=== PATIENT | female | born 1985 | race Caucasian/White ===

== ENCOUNTER → 2016-03-18 | Outpatient (CLI) | payer OTHER ==
[2016-03-18 12:12] LABS: CALCIUM LEVEL 8.2 MG/DL (8.5-10.1)
== END ==
LOC: M LAB 11:34
PROVIDERS: ATTEND Physician Assistant Medical
DX: E21.3 Hyperparathyroidism, unspecified (principal)

== ENCOUNTER → 2016-03-18 | Outpatient (CLI) | payer OTHER ==
--- NOTE | 2016-03-18 12:25 | REP ---
THORACIC SPINE, THREE VIEWS: HISTORY: Back pain. There is no acute fracture or subluxation. The intervertebral discs are normal in height. 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 There is minimal scoliosis of the upper thoracic spine convex to the left. IMPRESSION: There is no acute fracture or subluxation. Signed by Lloyd Ashley MD 03/18/2016 12:28 P
== END ==
LOC: M RAD 11:36
PROVIDERS: ATTEND Family Medicine Addiction Medicine
DX: M54.6 Pain in thoracic spine (principal)

== ENCOUNTER → 2016-03-31 | Outpatient (REF) | payer OTHER | LOC: M LAB REF 17:15 | PROVIDERS: ATTEND Internal Medicine Endocrinology, Diabetes & Metabolism | DX: E20.8 Other hypoparathyroidism (principal) ==

== ENCOUNTER → 2016-05-11 | Outpatient (CLI) | payer OTHER ==
--- NOTE | 2016-05-11 15:23 | REP ---
MRI THORACIC SPINE WITHOUT CONTRAST: 05/11/2016. Clinical history: Back pain, chest pain. Technique: Marker at the T3 vertebral level as proven on summer law associate cervical-thoracic sagittal view with sagittal T1, T2 and STIR images and axial T1 and T2 sequences provided. Findings: The normal gentle thoracic kyphosis is seen. There is no evidence of an acute compression fracture with minimal superior endplate depression of T4 anteriorly without marrow edema or other acute finding. No evidence of fracture or destructive lesion from C7-L1. The disc space and disc water signal are maintained from C7-T1 through T12-L1. The conus terminates at T12-L1. The thoracic cord shows no intrinsic signal abnormality, syrinx, atrophy or mass. There is no disc bulge or herniation and no spinal or foraminal stenosis from the C7-T1 through T12-L1 levels. Impression: 1. Normal MRI thoracic spine. No intrinsic signal abnormality, syrinx, atrophy or mass and no spinal or foraminal stenosis. The disc space heights, disc water signal and vertebral body heights and marrow signal are normal throughout. No intrinsic signal abnormality in the cord and some minor old superior endplate depression of the T4 vertebral body anteriorly without edema in the marrow to suggest acuity. Signed by Julio Perez MD 05/11/2016 06:44 P
== END ==
LOC: M RAD 13:12
PROVIDERS: ATTEND Family Medicine Addiction Medicine
DX: R07.9 Chest pain, unspecified (principal); M54.9 Dorsalgia, unspecified

== ENCOUNTER → 2016-06-20 | Outpatient (CLI) | payer OTHER ==
[2016-06-20 13:39] LABS: CALCIUM LEVEL 8.7 MG/DL (8.5-10.1)
== END ==
LOC: M LAB 12:15
PROVIDERS: ATTEND Physician Assistant Medical
DX: E20.8 Other hypoparathyroidism (principal); E55.9 Vitamin D deficiency, unspecified

== ENCOUNTER 2016-08-11 10:39 | Emergency (ER) | payer OTHER ==
[~2016-08-11] VITALS: Ht 160 cm; Wt 59.5 kg
[2016-08-11 10:40] VITALS: BP 109/77
[2016-08-11] MEDS ORDERED: MECL-86 PO (11:00)
[2016-08-11] MEDS ORDERED: VITA1TAB27 PO (11:00)
[2016-08-11] MEDS ORDERED: GABA-279 PO (11:00)
[2016-08-11] MEDS ORDERED: PERC5TAB6 PO (11:00)
[2016-08-11] MEDS ORDERED: CALCIUM PO (11:00)
[2016-08-11] MEDS ORDERED: REGL10TA6 PO (11:00)
[2016-08-11] MEDS ORDERED: birth control pills PO (11:08)
[2016-08-11] MEDS ORDERED: NS 1,000 ML IV ONE (12:00)
[2016-08-11] MEDS ORDERED: ONDANSETRON 4MG/2ML VIAL (J2405) IV ONE (12:00)
[2016-08-11 12:40] LABS: BASO % 0.6 % (0.0-1.0); EOS # 0.2 K/mm3 (0.0-0.50); EOS % 2.4 % (0.0-3.0); LARGE UNSTAINED CELL # 0.1 K/mm3 (0.0-0.4); LARGE UNSTAINED CELL % 1.2 % (0.0-4.0); LYMPH # 1.7 K/mm3 (1.5-4.5); LYMPH % 21.4 % (24.0-44.0); MEAN CORPUSCULAR HEMOGLOBIN 31.2 pg (27.0-33.0); MEAN CORPUSCULAR HGB CONC 34.1 g/dl (32.0-36.5); MEAN CORPUSCULAR VOLUME 91.4 fl (80.0-96.0); MONO # 0.4 K/mm3 (0.0-0.8); MONO % 5.5 % (0.0-5.0); NEUTROPHILS # 5.3 K/mm3 (1.8-7.7); NEUTROPHILS % 68.9 % (36.0-66.0); PLATELET COUNT, AUTOMATED 254 k/mm3 (150-450); RED CELL DISTRIBUTION WIDTH 12.4 % (11.5-14.5); WHITE BLOOD COUNT 7.6 K/mm3 (4.0-10.0)
[2016-08-11 12:45] LABS: ALBUMIN 4.3 GM/DL (3.2-5.2); ALBUMIN/GLOBULIN RATIO 1.48 (1.00-1.93); ALKALINE PHOSPHATASE 49 U/L (45-117); ALT/SGPT 20 U/L (12-78); AMYLASE 62 U/L (25-115); ANION GAP 6 MEQ/L (8-16); AST/SGOT 11 U/L (15-37); BILIRUBIN,DIRECT < 0.1 MG/DL (0.0-0.2); BILIRUBIN,TOTAL 0.4 MG/DL (0.2-1.0); BLOOD UREA NITROGEN 13 MG/DL (7-18); CALCIUM LEVEL 8.1 MG/DL (8.5-10.1); CARBON DIOXIDE LEVEL 27 MEQ/L (21-32); CHLORIDE LEVEL 106 MEQ/L (98-107); CREATININE FOR GFR 0.82 MG/DL (0.55-1.02); GLOMERULAR FILTRATION RATE > 60.0 (>60); GLUCOSE, FASTING 65 MG/DL (70-105); POTASSIUM SERUM 3.2 MEQ/L (3.5-5.1); SODIUM LEVEL 139 MEQ/L (136-145); TOTAL PROTEIN 7.2 GM/DL (6.4-8.2)
[2016-08-11] MEDS ORDERED: ZOFR4TAB3 PO (14:14)
== END 2016-08-11 14:29 | disposition home or self-care (01) ==
LOC: M ED 11:15
DX: R11.2 Nausea with vomiting, unspecified (principal); R19.7 Diarrhea, unspecified; F41.9 Anxiety disorder, unspecified; K58.9 Irritable bowel syndrome, unspecified; Z87.891 Personal history of nicotine dependence; Z79.899 Other long term (current) drug therapy

== ENCOUNTER → 2016-11-04 | Outpatient (CLI) | payer OTHER ==
[~2016-11-04] MED LIST: CALCIUM PO; GABA-279 PO; GASTROGRAFIN SOLUTION 30ML (Q9963) As Ordered ONE; ISOVUE-370 76% 100ML VIAL (Q9967) As Ordered ONE; MECL-86 PO; PERC5TAB12 PO; REGL10TA6 PO; VITA1TAB27 PO; ZOFR4TAB3 PO; birth control pills PO
--- NOTE | 2016-11-04 15:11 | REP ---
Clinical: Change in bowel habits. Comparison: 12/21/2015. Findings: Lung bases are clear. Visualized heart and pericardium normal. Liver, spleen, pancreas, gallbladder, bilateral adrenal glands and kidneys are normal for noncontrast evaluation. The enteric system is without obstruction or acute inflammatory process. Normal terminal ileum and appendix are identified in the right lower quadrant. Pelvis demonstrates normal collapsed bladder and age-appropriate uterus/adnexa. No ascites. No free air. No adenopathy. Abdominal aorta appears normal. Musculoskeletal structures are intact. Impression: Normal noncontrast CT of the abdomen and pelvis. Signed by Matthieu Dc MD 11/04/2016 03:02 P
== END ==
LOC: M RAD 12:44
PROVIDERS: ATTEND Internal Medicine Gastroenterology
DX: R19.4 Change in bowel habit (principal)
CPT/HCPCS: 74176; Q9963

== ENCOUNTER 2016-11-15 11:45 | Outpatient (CLI) | payer OTHER ==
[~2016-11-15] VITALS: Ht 157.5 cm; Wt 58.9 kg
[~2016-11-15 11:45] MED LIST changes: -GASTROGRAFIN SOLUTION 30ML (Q9963) As Ordered ONE; -ISOVUE-370 76% 100ML VIAL (Q9967) As Ordered ONE
[2016-11-15] MEDS ORDERED: NS 1,000 ML IV SCH (12:00)
[2016-11-15] MEDS ORDERED: PROPOFOL 200 MG/20 ML VIAL As Ordered ONE ×2 (12:35→12:40)
[2016-11-15] MEDS ORDERED: LIDOCAINE 2% INJ 100 MG/5 ML SDV (FOR ANES.) As Ordered ONE (12:35)
--- NOTE | 2016-11-15 13:10 | ROOR ---
Patient Name: Jessica Drake Procedure Date: 11/15/2016 12:32 PM Date of : 1985 Age: 31 Room: [facility] Gender: Female Note Status: Finalized Procedure: Colonoscopy Indications: Hematochezia, Change in bowel habits, Constipation Providers: Mohinder Lowery MD Referring MD: Jovanny VANCE MD Requesting Provider: Medicines: Monitored Anesthesia Care Complications: No immediate complications. Procedure: Pre-Anesthesia Assessment: - Prior to the procedure, a History and Physical was performed, and patient medications and allergies were reviewed. The patient is competent. The risks and benefits of the procedure and the sedation options and risks were discussed with the patient. All questions were answered and informed consent was obtained. Patient identification and proposed procedure were verified by the physician, the nurse and the dental laboratory technician in the procedure room. Mental Status Examination: alert and oriented. Airway Examination: normal oropharyngeal airway and neck mobility. Respiratory Examination: clear to auscultation. CV Examination: normal. Prophylactic Antibiotics: The patient does not require prophylactic antibiotics. Prior Anticoagulants: The patient has taken no previous anticoagulant or antiplatelet agents. ASA Grade Assessment: II - A patient with mild systemic disease. After reviewing the risks and benefits, the patient was deemed in satisfactory condition to undergo the procedure. The anesthesia plan was to use monitored anesthesia care (MAC). Immediately prior to administration of medications, the patient was re-assessed for adequacy to receive sedatives. The heart rate, respiratory rate, oxygen saturations, blood pressure, adequacy of pulmonary ventilation, and response to care were monitored throughout the procedure. The physical status of the patient was re-assessed after the procedure. The Colonoscope was introduced through the anus and advanced to the cecum, identified by appendiceal orifice and ileocecal valve. The colonoscopy was somewhat difficult due to restricted mobility of the colon. Successful completion of the procedure was aided by using manual pressure. The patient tolerated the procedure well. The quality of the bowel preparation was good. The ileocecal valve, appendiceal orifice, and rectum were photographed. Scope insertion time was 3 minutes. Scope withdrawal time was 10 minutes. The total duration of the procedure was 16 minutes. Findings: The perianal and digital rectal examinations were normal. Diffuse moderate inflammation characterized by erosions, granularity and loss of vascularity was found from sigmoid to transverse colon. Biopsies were taken with a cold forceps for histology. Verification of patient identification for the specimen was done by the physician and nurse using the patient's name, date and medical record number. Estimated blood loss was minimal. Non-bleeding external and internal hemorrhoids were found during retroflexion. The hemorrhoids were medium-sized. The exam was otherwise without abnormality. Impression: - Diffuse moderate inflammation was found from sigmoid to transverse colon secondary to colitis. Biopsied. - Non-bleeding external and internal hemorrhoids. - The examination was otherwise normal. Recommendation: - Patient has a contact number available for emergencies. The signs and symptoms of potential delayed complications were discussed with the patient. Return to normal activities tomorrow. Written discharge instructions were provided to the patient. - High fiber diet. - Continue present medications. - Await pathology results. - Repeat colonoscopy at age 49 for screening purposes. - Return to GI clinic as previously scheduled on 12/02/2016 at 9:00 AM. - Return to primary care physician. Mohinder Lowery MD Mohinder Lowery MD 11/15/2016 1:10:15 PM This report has been signed electronically. Number of Addenda: 0 Note Initiated On: 11/15/2016 12:32 PM Estimated Blood Loss: Estimated blood loss was minimal.
[2016-11-15 13:56] VITALS: BP 124/78
[2016-11-15] MEDS ORDERED: IBUPROFEN 400 MG TAB As Ordered ONE (14:08)
[2016-11-15] MEDS ORDERED: IBUPROFEN 400 MG TAB PO ONE (14:30)
== END 2016-11-15 14:16 | disposition home or self-care (01) ==
LOC: M OPP 11:45
PROVIDERS: ATTEND Internal Medicine Gastroenterology
DX: K92.1 Melena (principal); R19.4 Change in bowel habit; K59.00 Constipation, unspecified; K63.89 Other specified diseases of intestine; K64.4 Residual hemorrhoidal skin tags; K64.8 Other hemorrhoids; G89.4 Chronic pain syndrome; E07.9 Disorder of thyroid, unspecified; E21.3 Hyperparathyroidism, unspecified; Z80.1 Family history of malignant neoplasm of trachea, bronchus and lung; Z80.0 Family history of malignant neoplasm of digestive organs; F17.210 Nicotine dependence, cigarettes, uncomplicated; Z79.899 Other long term (current) drug therapy

== ENCOUNTER → 2016-12-06 | Outpatient (REF) | payer OTHER ==
[2016-12-06 15:14] LABS: CALCIUM LEVEL 8.2 MG/DL (8.5-10.1); PHOSPHORUS LEVEL 3.2 MG/DL (2.5-4.9)
== END ==
LOC: M LABDRAW1 11:35
PROVIDERS: ATTEND Internal Medicine Endocrinology, Diabetes & Metabolism
DX: E21.3 Hyperparathyroidism, unspecified (principal)

== ENCOUNTER → 2017-01-30 | Outpatient (CLI) | payer OTHER ==
[2017-01-30 14:16] LABS: CALCIUM LEVEL 8.7 MG/DL (8.5-10.1); MAGNESIUM LEVEL 1.9 MG/DL (1.8-2.4); PHOSPHORUS LEVEL 4.3 MG/DL (2.5-4.9)
== END ==
LOC: M LAB 12:41
PROVIDERS: ATTEND Internal Medicine Endocrinology, Diabetes & Metabolism
DX: E21.3 Hyperparathyroidism, unspecified (principal)

== ENCOUNTER 2017-06-03 14:23 | Emergency (ER) | payer OTHER | END 2017-06-03 15:04 | disposition home or self-care (01) | LOC: M ED 14:23 | DX: K04.7 Periapical abscess without sinus (principal); K02.9 Dental caries, unspecified; F17.200 Nicotine dependence, unspecified, uncomplicated; Z79.899 Other long term (current) drug therapy | CPT/HCPCS: 99282 ==

== ENCOUNTER → 2017-08-04 | Outpatient (REF) | payer OTHER ==
[2017-08-04 16:52] LABS: CALCIUM LEVEL 8.3 MG/DL (8.5-10.1)
[2017-08-04 16:52] LABS: PHOSPHORUS LEVEL 3.1 MG/DL (2.5-4.9)
[2017-08-04 16:57] LABS: TOTAL 25(OH) VITAMIN D 16.4 NG/ML (30.0-100.0)
== END ==
LOC: M LABDRAW1 11:06
DX: E21.3 Hyperparathyroidism, unspecified (principal); E55.9 Vitamin D deficiency, unspecified

== ENCOUNTER 2017-08-23 15:27 | Emergency (ER) | payer OTHER ==
[2017-08-23 17:38] LABS: BASO # 0.1 10^3/uL (0.0-0.2); BASO % 0.9 % (0.0-1.0); EOS # 0.5 10^3/uL (0.0-0.50); EOS % 6.1 % (0.0-3.0); HEMOGLOBIN 12.9 g/dl (12.0-15.5); IMMATURE GRANULOCYTE % 0.3 % (0-3.0); LYMPH # 2.7 10^3/uL (1.5-4.5); LYMPH % 35.8 % (24.0-44.0); MEAN CORPUSCULAR HEMOGLOBIN 30.3 pg (27.0-33.0); MEAN CORPUSCULAR HGB CONC 33.9 g/dl (32.0-36.5); MEAN CORPUSCULAR VOLUME 89.2 fl (80.0-96.0); MONO # 0.7 10^3/uL (0.0-0.8); MONO % 8.8 % (0.0-5.0); NEUTROPHILS # 3.6 10^3/uL (1.8-7.7); NEUTROPHILS % 48.1 % (36.0-66.0); PLATELET COUNT, AUTOMATED 257 10^3/uL (150-450); RED BLOOD COUNT 4.26 10^6/uL (4.00-5.40); RED CELL DISTRIBUTION WIDTH 12.3 % (11.5-14.5); WHITE BLOOD COUNT 7.4 10^3/uL (4.0-10.0)
[2017-08-23] MEDS: GI COCKTAIL 50ML BTL(HYOSCYAMINE/MAALOX/LIDOCAINE VISCOUS)(1:3:1) PO (17:45)
[2017-08-23] MEDS: NS 1,000 ML IV (17:45)
[2017-08-23 17:48] LABS: ALBUMIN 3.7 GM/DL (3.2-5.2); ALBUMIN/GLOBULIN RATIO 1.28 (1.00-1.93); ALKALINE PHOSPHATASE 48 U/L (45-117); ALT/SGPT 30 U/L (12-78); ANION GAP 4 MEQ/L (8-16); AST/SGOT 20 U/L (7-37); BILIRUBIN,DIRECT < 0.1 MG/DL (0.0-0.2); BILIRUBIN,TOTAL 0.2 MG/DL (0.2-1.0); BLOOD UREA NITROGEN 13 MG/DL (7-18); CALCIUM LEVEL 7.7 MG/DL (8.5-10.1); CARBON DIOXIDE LEVEL 28 MEQ/L (21-32); CHLORIDE LEVEL 111 MEQ/L (98-107); CREATININE FOR GFR 0.74 MG/DL (0.55-1.30); GLOMERULAR FILTRATION RATE > 60.0 (>60); GLUCOSE, FASTING 67 MG/DL (70-100); LIPASE 1097 U/L (73-393); POTASSIUM SERUM 4.1 MEQ/L (3.5-5.1); SODIUM LEVEL 143 MEQ/L (136-145); TOTAL PROTEIN 6.6 GM/DL (6.4-8.2)
[2017-08-23 18:02] LABS: AMYLASE 121 U/L (25-115)
[2017-08-23] MEDS ORDERED: ISOVUE-370 76% 100ML VIAL (Q9967) As Ordered (18:46)
[2017-08-23] MEDS: ONDANSETRON 4MG/2ML VIAL (J2405) IV (18:51)
[2017-08-23] MEDS: MORPHINE 4 MG/ML 1ML VIAL/SYRINGE (J2270) IV (18:51)
== END 2017-08-23 20:43 | disposition home or self-care (01) ==
LOC: M ED 15:27
DX: R74.8 Abnormal levels of other serum enzymes (principal); R93.5 Abnormal findings on diagnostic imaging of other abdominal regions, including retroperitoneum; K58.9 Irritable bowel syndrome, unspecified; Z87.442 Personal history of urinary calculi; Z86.69 Personal history of other diseases of the nervous system and sense organs; Z98.890 Other specified postprocedural states; Z79.3 Long term (current) use of hormonal contraceptives; Z79.899 Other long term (current) drug therapy
CPT/HCPCS: J2270

== ENCOUNTER → 2017-09-25 | Outpatient (CLI) | payer OTHER ==
[2017-09-28 08:11] LABS: IGASUB2 66.7 mg/dL (73.2-301.2); IGASUB3 12.5 mg/dL (13.4-97.9); IgA SERUM (part of Subclasses) 96 mg/dL (87-352); IgG SUBCLASS 4(ONLY) 35 mg/dL (2-96)
[2017-09-28 08:11] LABS: TISSUE TRANSGLUTAMINASE IgA <2 U/mL (0-3)
== END ==
LOC: M LAB 15:05
DX: K85.90 Acute pancreatitis without necrosis or infection, unspecified (principal)
CPT/HCPCS: 82784

== ENCOUNTER 2017-09-26 10:42 | Day surgery (SDC) | payer OTHER ==
[~2017-09-26 10:42] MED LIST changes: -CALCIUM PO; -GABA-279 PO; -MECL-86 PO; -PERC5TAB12 PO; +PROPOFOL 200 MG/20 ML VIAL As Ordered; -REGL10TA6 PO; -VITA1TAB27 PO; -ZOFR4TAB3 PO; -birth control pills PO; +fentaNYL 100 MCG/2 ML INJECTION (J3010) As Ordered
[2017-09-26] MEDS ORDERED: LIDOCAINE 2% INJ 100 MG/5 ML SDV (FOR ANES.) As Ordered (10:54)
[2017-09-26] MEDS: NS 1,000 ML IV (11:00)
== END 2017-09-26 12:36 | disposition home or self-care (01) ==
LOC: M OPP 10:42
DX: R93.3 Abnormal findings on diagnostic imaging of other parts of digestive tract (principal); K52.9 Noninfective gastroenteritis and colitis, unspecified; K31.89 Other diseases of stomach and duodenum; K29.70 Gastritis, unspecified, without bleeding; E21.3 Hyperparathyroidism, unspecified; Z86.79 Personal history of other diseases of the circulatory system; K59.00 Constipation, unspecified; M54.89 Other dorsalgia; F41.9 Anxiety disorder, unspecified; F32.9 Major depressive disorder, single episode, unspecified; R42 Dizziness and giddiness; F43.10 Post-traumatic stress disorder, unspecified; Z87.442 Personal history of urinary calculi; Z79.899 Other long term (current) drug therapy; Z80.1 Family history of malignant neoplasm of trachea, bronchus and lung; Z80.0 Family history of malignant neoplasm of digestive organs
CPT/HCPCS: 43239

== ENCOUNTER → 2017-11-20 | Outpatient (REF) | payer OTHER ==
[2017-11-20 18:40] LABS: BASO % 0.7 % (0.0-1.0); EOS # 0.2 10^3/uL (0.0-0.50); EOS % 2.8 % (0.0-3.0); HEMATOCRIT 43.9 % (36.0-47.0); HEMOGLOBIN 14.7 g/dl (12.0-15.5); IMMATURE GRANULOCYTE % 0.2 % (0-3.0); LYMPH # 2.1 10^3/uL (1.5-4.5); LYMPH % 36.6 % (24.0-44.0); MEAN CORPUSCULAR HEMOGLOBIN 30.8 pg (27.0-33.0); MEAN CORPUSCULAR HGB CONC 33.5 g/dl (32.0-36.5); MONO # 0.4 10^3/uL (0.0-0.8); MONO % 6.2 % (0.0-5.0); NEUTROPHILS % 53.5 % (36.0-66.0); PLATELET COUNT, AUTOMATED 283 10^3/uL (150-450); RED BLOOD COUNT 4.77 10^6/uL (4.00-5.40); WHITE BLOOD COUNT 5.7 10^3/uL (4.0-10.0)
[2017-11-20 18:54] LABS: AMORPHOUS SEDIMENT MODERATE (NEGATIVE); APPEARANCE, URINE HAZY (CLEAR); BACTERIA, URINE AUTO NEGATIVE (NEGATIVE); BILIRUBIN, URINE AUTO NEGATIVE (NEGATIVE); BLOOD, URINE BLOOD NEGATIVE (NEGATIVE); COLOR, URINE YELLOW (YELLOW); GLUCOSE, URINE (UA) AUTO NEGATIVE (NEGATIVE); KETONE, URINE AUTO NEGATIVE (NEGATIVE); LEUKOCYTE ESTERASE, URINE AUTO NEGATIVE (NEGATIVE); NITRITE, URINE AUTO NEGATIVE (NEGATIVE); PROTEIN, URINE AUTO NEGATIVE (NEGATIVE); RBC, URINE AUTO 0 /HPF (0-3); SPECIFIC GRAVITY URINE AUTO 1.012 (1.002-1.035); SQUAMOUS EPITHELIAL CELL UR AU 0 /HPF (0-6); UROBILINOGEN, URINE AUTO 0.2 mg/dL (0.0-2.0); WBC, URINE AUTO 3 /HPF (0-3)
[2017-11-20 19:19] LABS: FREE THYROXINE INDEX 2.9 % (1.3-4.8); T UPTAKE 31 % (30-39); THYROXINE (T4) 9.4 UG/DL (4.5-12.0)
[2017-11-20 19:56] LABS: ESTIMATED AVERAGE GLUCOSE 91 MG/DL (60-110); HEMOGLOBIN A1c 4.8 %
[2017-11-20 20:08] LABS: TOTAL 25(OH) VITAMIN D 21.2 NG/ML (30.0-100.0)
== END ==
LOC: M LAB REF 16:57
DX: F33.0 Major depressive disorder, recurrent, mild (principal)

== ENCOUNTER → 2017-12-22 | Outpatient (REF) | payer OTHER ==
[2017-12-22 15:27] LABS: PHOSPHORUS LEVEL 3.6 MG/DL (2.5-4.9)
[2017-12-22 15:27] LABS: CALCIUM LEVEL 8.9 MG/DL (8.5-10.1)
[2017-12-22 15:34] LABS: TOTAL 25(OH) VITAMIN D 27.5 NG/ML (30.0-100.0)
== END ==
LOC: M LABDRAW1 12:54
DX: E21.3 Hyperparathyroidism, unspecified (principal); E55.9 Vitamin D deficiency, unspecified
CPT/HCPCS: 82310

== ENCOUNTER → 2018-01-01 | Outpatient (REF) | payer OTHER, MEDICAID ==
[2018-01-01 17:54] LABS: MAGNESIUM LEVEL 2.2 MG/DL (1.8-2.4)
== END ==
LOC: M LAB REF 16:43
DX: F33.0 Major depressive disorder, recurrent, mild (principal)

== ENCOUNTER → 2018-01-17 | Outpatient (REF) | payer OTHER ==
[2018-01-17 13:58] LABS: APPEARANCE, URINE HAZY (CLEAR); BACTERIA, URINE AUTO NEGATIVE (NEGATIVE); BILIRUBIN, URINE AUTO NEGATIVE (NEGATIVE); BLOOD, URINE BLOOD 1+ (NEGATIVE); CALCIUM OXALATE CRYSTALS MODERATE; COLOR, URINE AMBER (YELLOW); GLUCOSE, URINE (UA) AUTO NEGATIVE (NEGATIVE); KETONE, URINE AUTO NEGATIVE (NEGATIVE); LEUKOCYTE ESTERASE, URINE AUTO NEGATIVE (NEGATIVE); MUCUS, URINE LARGE (NEGATIVE); NITRITE, URINE AUTO NEGATIVE (NEGATIVE); PROTEIN, URINE AUTO NEGATIVE (NEGATIVE); RBC, URINE AUTO 4 /HPF (0-3); SQUAMOUS EPITHELIAL CELL UR AU 2 /HPF (0-6); WBC, URINE AUTO 3 /HPF (0-3)
== END ==
LOC: M SMT 12:52
DX: R39.15 Urgency of urination (principal)
CPT/HCPCS: 81001

== ENCOUNTER → 2018-02-01 | Outpatient (CLI) | payer OTHER | LOC: M RAD 11:51 | DX: R39.15 Urgency of urination (principal); R39.14 Feeling of incomplete bladder emptying; Z87.442 Personal history of urinary calculi | CPT/HCPCS: 76775 ==

== ENCOUNTER 2018-02-10 19:26 | Emergency (ER) | payer OTHER ==
[2018-02-10 21:06] LABS: INFLUENZA A AMPLIFICATION NEGATIVE (NEGATIVE); INFLUENZA B AMPLIFICATION NEGATIVE (NEGATIVE)
[2018-02-10] MEDS: ACETAMINOPHEN 325 MG TAB PO (21:23)
[2018-02-10] MEDS: IBUPROFEN 600 MG TAB PO (21:23)
== END 2018-02-10 21:36 | disposition home or self-care (01) ==
LOC: M ED 19:26
DX: R52 Pain, unspecified (principal); R53.81 Other malaise; B34.9 Viral infection, unspecified; G43.909 Migraine, unspecified, not intractable, without status migrainosus; K58.9 Irritable bowel syndrome, unspecified; Z79.899 Other long term (current) drug therapy
CPT/HCPCS: 87502

== ENCOUNTER → 2018-02-12 | Outpatient (REF) | payer OTHER ==
[~2018-02-12] MED LIST changes: +CALC1CAP31 PO; +CALCIUM PO; +COLA100C5 PO; +GABA-1171 PO; +IBUP-1114 PO; +MECL-86 PO; +NORCOTAB PO; +OXYC1TAB23 PO; +PENI500T PO; +PERC5TAB12 PO; -PROPOFOL 200 MG/20 ML VIAL As Ordered; +REGL10TA6 PO; +SENN8.6T17 PO; +VITA1TAB27 PO; +ZOFR4TAB14 PO; +birth control pills PO; -fentaNYL 100 MCG/2 ML INJECTION (J3010) As Ordered
[2018-02-12 17:58] LABS: AMORPHOUS SEDIMENT LARGE (NEGATIVE); APPEARANCE, URINE TURBID (CLEAR); BACTERIA, URINE AUTO NEGATIVE (NEGATIVE); BILIRUBIN, URINE AUTO NEGATIVE (NEGATIVE); BLOOD, URINE BLOOD NEGATIVE (NEGATIVE); COLOR, URINE AMBER (YELLOW); GLUCOSE, URINE (UA) AUTO NEGATIVE (NEGATIVE); KETONE, URINE AUTO NEGATIVE (NEGATIVE); LEUKOCYTE ESTERASE, URINE AUTO NEGATIVE (NEGATIVE); MUCUS, URINE SMALL (NEGATIVE); NITRITE, URINE AUTO NEGATIVE (NEGATIVE); PROTEIN, URINE AUTO NEGATIVE (NEGATIVE); RBC, URINE AUTO 3 /HPF (0-3); SQUAMOUS EPITHELIAL CELL UR AU 0 /HPF (0-6); WBC, URINE AUTO 2 /HPF (0-3)
== END ==
LOC: M SMT 17:05
PROVIDERS: ATTEND Nurse Practitioner Women's Health
DX: R31.29 Other microscopic hematuria (principal)

== ENCOUNTER → 2018-03-27 | Outpatient (REF) | payer OTHER ==
[2018-03-27 19:02] LABS: CALCIUM LEVEL 9.1 MG/DL (8.5-10.1); PHOSPHORUS LEVEL 3.9 MG/DL (2.5-4.9)
[2018-03-27 19:10] LABS: TOTAL 25(OH) VITAMIN D 19.6 NG/ML (30.0-100.0)
== END ==
LOC: M LABDRAW1 18:02
PROVIDERS: ATTEND Nurse Practitioner Family
DX: E55.9 Vitamin D deficiency, unspecified (principal); E21.3 Hyperparathyroidism, unspecified

== ENCOUNTER → 2018-04-09 | Outpatient (REF) | payer OTHER, MEDICAID ==
[2018-04-09 19:01] LABS: APPEARANCE, URINE HAZY (CLEAR); BACTERIA, URINE AUTO NEGATIVE (NEGATIVE); BILIRUBIN, URINE AUTO NEGATIVE (NEGATIVE); BLOOD, URINE BLOOD NEGATIVE (NEGATIVE); COLOR, URINE YELLOW (YELLOW); GLUCOSE, URINE (UA) AUTO NEGATIVE (NEGATIVE); KETONE, URINE AUTO NEGATIVE (NEGATIVE); LEUKOCYTE ESTERASE, URINE AUTO NEGATIVE (NEGATIVE); NITRITE, URINE AUTO NEGATIVE (NEGATIVE); PROTEIN, URINE AUTO NEGATIVE (NEGATIVE); RBC, URINE AUTO 1 /HPF (0-3); SPECIFIC GRAVITY URINE AUTO 1.015 (1.002-1.035); SQUAMOUS EPITHELIAL CELL UR AU 2 /HPF (0-6); UROBILINOGEN, URINE AUTO 0.2 mg/dL (0.0-2.0); WBC, URINE AUTO 2 /HPF (0-3)
[2018-04-09 20:20] LABS: BASO # 0.1 10^3/uL (0.0-0.2); BASO % 0.8 % (0.0-1.0); EOS # 0.4 10^3/uL (0.0-0.50); EOS % 5.7 % (0.0-3.0); HEMATOCRIT 42.8 % (36.0-47.0); HEMOGLOBIN 14.3 g/dl (12.0-15.5); LYMPH # 2.3 10^3/uL (1.5-4.5); LYMPH % 29.7 % (24.0-44.0); MEAN CORPUSCULAR HEMOGLOBIN 31.4 pg (27.0-33.0); MEAN CORPUSCULAR HGB CONC 33.4 g/dl (32.0-36.5); MEAN CORPUSCULAR VOLUME 93.9 fl (80.0-96.0); MONO # 0.5 10^3/uL (0.0-0.8); MONO % 6.3 % (0.0-5.0); NEUTROPHILS # 4.4 10^3/uL (1.8-7.7); NEUTROPHILS % 57.2 % (36.0-66.0); PLATELET COUNT, AUTOMATED 270 10^3/uL (150-450); RED BLOOD COUNT 4.56 10^6/uL (4.00-5.40); WHITE BLOOD COUNT 7.8 10^3/uL (4.0-10.0)
[2018-04-09 20:27] LABS: ALBUMIN 4.4 GM/DL (3.2-5.2); ALT/SGPT 24 U/L (12-78); BILIRUBIN,TOTAL 0.2 MG/DL (0.2-1.0); BLOOD UREA NITROGEN 10 MG/DL (7-18); CALCIUM LEVEL 8.4 MG/DL (8.5-10.1); CARBON DIOXIDE LEVEL 27 MEQ/L (21-32); CHLORIDE LEVEL 104 MEQ/L (98-107); CREATININE FOR GFR 0.82 MG/DL (0.55-1.30); GLOMERULAR FILTRATION RATE > 60.0 (>60); GLUCOSE, FASTING 121 MG/DL (70-100); POTASSIUM SERUM 4.2 MEQ/L (3.5-5.1); SODIUM LEVEL 138 MEQ/L (136-145); TOTAL PROTEIN 7.4 GM/DL (6.4-8.2)
[2018-04-09 20:28] LABS: TOTAL 25(OH) VITAMIN D 32.6 NG/ML (30.0-100.0)
[2018-04-09 21:01] LABS: HEMOGLOBIN A1c 5.5 %
== END ==
LOC: M LAB REF 17:29
PROVIDERS: ATTEND Psychiatry & Neurology Child & Adolescent Psychiatry
DX: F33.0 Major depressive disorder, recurrent, mild (principal)

== ENCOUNTER → 2018-04-27 | Outpatient (CLI) | payer OTHER ==
--- NOTE | 2018-04-27 10:04 | REP ---
Hepatobiliary scan: History: Right upper quadrant pain. Technique: 6.6 mCi technetium 99m mebrofenin is injected and sequential anterior abdominal images are acquired. 1 hour imaging interval. Scintigraphic findings: The initial hepatocellular parenchymal uptake phase shows normal parenchymal uptake. No focal liver lesion is seen. Intrahepatic bile ducts are first visualized at 5 minutes and the gallbladder is first visualized at 10 minutes. Subsequent images demonstrate normal washout from the liver parenchyma into the gallbladder. The small intestine is not labeled at the 60-minute post injection harvinder. Impression: Delayed biliary to bowel transit time which is nonspecific. Otherwise negative hepatobiliary nuclear scintigraphy. Electronically Signed by Bentley Nascimento MD 04/27/2018 02:39 P
== END ==
LOC: M RAD 07:30
PROVIDERS: ATTEND Internal Medicine Gastroenterology
DX: R10.11 Right upper quadrant pain (principal)

== ENCOUNTER 2018-05-17 16:47 | Emergency (ER) | payer OTHER ==
[~2018-05-17] VITALS: Ht 157.5 cm; Wt 65.3 kg
[~2018-05-17 16:47] MED LIST changes: +HYDR-3715 PO; -NORCOTAB PO
[2018-05-17] MEDS ORDERED: TRAZ-163 PO (17:03)
[2018-05-17] MEDS ORDERED: SERT-138 PO (17:03)
[2018-05-17] MEDS ORDERED: NARC1SPR (17:03)
[2018-05-17] MEDS ORDERED: GABA-843 PO (17:03)
[2018-05-17] MEDS ORDERED: CYCL10TA PO (17:03)
[2018-05-17] MEDS ORDERED: MELO7.5T7 PO (17:03)
[2018-05-17 17:34] LABS: BASO % 0.6 % (0.0-1.0); EOS # 0.3 10^3/uL (0.0-0.50); EOS % 4.3 % (0.0-3.0); HEMATOCRIT 39.9 % (36.0-47.0); HEMOGLOBIN 13.7 g/dl (12.0-15.5); LYMPH # 2.9 10^3/uL (1.5-4.5); LYMPH % 40.3 % (24.0-44.0); MEAN CORPUSCULAR HEMOGLOBIN 31.5 pg (27.0-33.0); MEAN CORPUSCULAR HGB CONC 34.3 g/dl (32.0-36.5); MEAN CORPUSCULAR VOLUME 91.7 fl (80.0-96.0); MONO # 0.5 10^3/uL (0.0-0.8); MONO % 7.6 % (0.0-5.0); NEUTROPHILS # 3.4 10^3/uL (1.8-7.7); NEUTROPHILS % 46.9 % (36.0-66.0); PLATELET COUNT, AUTOMATED 233 10^3/uL (150-450); RED BLOOD COUNT 4.35 10^6/uL (4.00-5.40); WHITE BLOOD COUNT 7.1 10^3/uL (4.0-10.0)
--- NOTE | 2018-05-17 17:49 | REP ---
Chest one-view HISTORY: Chest pain Comparison: None The lungs are clear. The heart is normal in size. The pulmonary vasculature is normal in appearance. Impression: No acute disease. Electronically Signed by Lloyd Ashley MD 05/17/2018 05:40 P
[2018-05-17 18:07] LABS: BLOOD UREA NITROGEN 13 MG/DL (7-18); CALCIUM LEVEL 8.4 MG/DL (8.5-10.1); CARBON DIOXIDE LEVEL 31 MEQ/L (21-32); CHLORIDE LEVEL 104 MEQ/L (98-107); CK-MB VALUE MASS < 1.0 NG/ML (<3.6); CPK CREATINE PHOSPHOKINASE 101 U/L (26-192); CREATININE FOR GFR 0.77 MG/DL (0.55-1.30); GLOMERULAR FILTRATION RATE > 60.0 (>60); GLUCOSE, FASTING 79 MG/DL (70-100); MB/CK RELATIVE INDEX 0.99 (< OR =4); POTASSIUM SERUM 4.1 MEQ/L (3.5-5.1); SODIUM LEVEL 140 MEQ/L (136-145); TROPONIN I < 0.02 NG/ML (< 0.10)
[2018-05-17] MEDS ORDERED: KETOROLAC 30 MG/ML VIAL (J1885) IV ONE (19:00)
[2018-05-17] MEDS ORDERED: METOCLOPRAMIDE INJ 10MG/2ML VIAL (J2765) IV ONE (19:00)
[2018-05-17 22:44] VITALS: BP 123/77
[2018-05-17 22:59] LABS: CK-MB VALUE MASS < 1.0 NG/ML (<3.6); CPK CREATINE PHOSPHOKINASE 198 U/L (26-192); MB/CK RELATIVE INDEX 0.51 (< OR =4); TROPONIN I < 0.02 NG/ML (< 0.10)
--- NOTE | 2018-05-18 06:28 | ECGEPIP ---
Stationary ECG Study [facility] - ED Test Date: 2018-05-17 Pat Name: REBEKAH BARRIENTOS Department: Room: - Gender: F C S S Representative: negin : 1985 Requested By: Temi Conklin Order Number: [id number] Reading MD: Iggy Mallory Measurements Intervals [place] Rate: 66 P: 66 AK: 164 QRS: 92 QRSD: 104 T: 72 QT: 376 QTc: 395 Interpretive Statements SINUS RHYTHM BORDERLINE RIGHT AXIS DEVIATION LOW QRS VOLTAGE IN PRECORDIAL LEADS NSTTW ABNORMALITIES SIMILAR TO 08/23/17 Electronically Signed On 05-18-2018 6:28:15 EDT by Iggy Mallory
== END 2018-05-17 23:29 | disposition home or self-care (01) ==
LOC: M ED 16:47
DX: R07.89 Other chest pain (principal); R06.02 Shortness of breath; G43.909 Migraine, unspecified, not intractable, without status migrainosus; G90.9 Disorder of the autonomic nervous system, unspecified; E20.9 Hypoparathyroidism, unspecified; F41.9 Anxiety disorder, unspecified; F32.9 Major depressive disorder, single episode, unspecified; Z87.442 Personal history of urinary calculi; Z87.891 Personal history of nicotine dependence; Z79.899 Other long term (current) drug therapy
CPT/HCPCS: 36415; 71045; 80048; 82550; 82553; 85025; 93005; 93041; 94760; 96374; 96375; 99284; J1885; J2765

== ENCOUNTER → 2018-05-21 | Outpatient (REF) | payer OTHER ==
[~2018-05-21] MED LIST changes: +CYCL10TA PO; +GABA-843 PO; -HYDR-3715 PO; +MELO7.5T7 PO; +NARC1SPR; +NORCOTAB PO; +SERT-138 PO; +TRAZ-163 PO
[2018-05-21 17:28] LABS: BASO # 0.1 10^3/uL (0.0-0.2); BASO % 0.8 % (0.0-1.0); EOS # 0.5 10^3/uL (0.0-0.50); EOS % 6.7 % (0.0-3.0); HEMATOCRIT 40.2 % (36.0-47.0); HEMOGLOBIN 13.4 g/dl (12.0-15.5); LYMPH # 2.5 10^3/uL (1.5-4.5); LYMPH % 33.8 % (24.0-44.0); MEAN CORPUSCULAR HEMOGLOBIN 31.1 pg (27.0-33.0); MEAN CORPUSCULAR HGB CONC 33.3 g/dl (32.0-36.5); MEAN CORPUSCULAR VOLUME 93.3 fl (80.0-96.0); MONO # 0.6 10^3/uL (0.0-0.8); NEUTROPHILS # 3.8 10^3/uL (1.8-7.7); NEUTROPHILS % 50.6 % (36.0-66.0); PLATELET COUNT, AUTOMATED 283 10^3/uL (150-450); RED BLOOD COUNT 4.31 10^6/uL (4.00-5.40); WHITE BLOOD COUNT 7.5 10^3/uL (4.0-10.0)
[2018-05-21 17:37] LABS: ALBUMIN 3.7 GM/DL (3.2-5.2); ALT/SGPT 28 U/L (12-78); BILIRUBIN,TOTAL 0.2 MG/DL (0.2-1.0); BLOOD UREA NITROGEN 17 MG/DL (7-18); CALCIUM LEVEL 8.3 MG/DL (8.5-10.1); CARBON DIOXIDE LEVEL 29 MEQ/L (21-32); CHLORIDE LEVEL 107 MEQ/L (98-107); FREE THYROXINE INDEX 2.3 % (1.3-4.8); GLOMERULAR FILTRATION RATE > 60.0 (>60); GLUCOSE, FASTING 71 MG/DL (70-100); MAGNESIUM LEVEL 2.3 MG/DL (1.8-2.4); PHOSPHORUS LEVEL 3.1 MG/DL (2.5-4.9); POTASSIUM SERUM 4.8 MEQ/L (3.5-5.1); SODIUM LEVEL 140 MEQ/L (136-145); T UPTAKE 30 % (30-39); THYROXINE (T4) 7.7 UG/DL (4.5-12.0); TOTAL PROTEIN 6.8 GM/DL (6.4-8.2)
[2018-05-21 17:40] LABS: TOTAL 25(OH) VITAMIN D 33.1 NG/ML (30.0-100.0)
[2018-05-21 18:25] LABS: AMORPHOUS SEDIMENT LARGE (NEGATIVE); APPEARANCE, URINE TURBID (CLEAR); BACTERIA, URINE AUTO NEGATIVE (NEGATIVE); BILIRUBIN, URINE AUTO NEGATIVE (NEGATIVE); BLOOD, URINE BLOOD NEGATIVE (NEGATIVE); GLUCOSE, URINE (UA) AUTO NEGATIVE (NEGATIVE); KETONE, URINE AUTO TRACE mg/dL (NEGATIVE); LEUKOCYTE ESTERASE, URINE AUTO TRACE (NEGATIVE); MUCUS, URINE SMALL (NEGATIVE); NITRITE, URINE AUTO NEGATIVE (NEGATIVE); PROTEIN, URINE AUTO NEGATIVE (NEGATIVE); RBC, URINE AUTO 0 /HPF (0-3); SPECIFIC GRAVITY URINE AUTO 1.039 (1.002-1.035); SQUAMOUS EPITHELIAL CELL UR AU 0 /HPF (0-6); WBC, URINE AUTO 0 /HPF (0-3)
[2018-05-21 18:27] LABS: COLOR, URINE YELLOW (YELLOW)
== END ==
LOC: M LAB REF 16:39
PROVIDERS: ATTEND Psychiatry & Neurology Child & Adolescent Psychiatry
DX: F33.0 Major depressive disorder, recurrent, mild (principal)

== ENCOUNTER → 2018-06-04 | Outpatient (CLI) | payer OTHER, MEDICAID ==
[~2018-06-04] MED LIST changes: +HYDR-3715 PO; +MOBI4TAB PO; -NORCOTAB PO; +OXYC10TA3 PO; +VITA1CAP25 PO
--- NOTE | 2018-06-21 01:17 | ECWPNPC ---
PATIENT NAME: REBEKAH BARRIENTOS : 1985 GENDER: FEMALE VISIT DATE: 06/04/2018 DISCHARGE DATE: 06/04/18 1313 VISIT LOCKED DATE TIME: PHYSICIAN: NALINI KONG MD RESOURCE: NALINI KONG MD REASON FOR APPOINTMENT 1. CHRONIC THORACIC PAIN HISTORY OF PRESENT ILLNESS PAIN SCREENING: PATIENT HAS A COMPLAINT OF ACUTE OR CHRONIC PAIN :YES 33 YEAR OLD FEMALE PATIENT WITH A HISTORY OF CHRONIC THORACIC PAIN. THE PATIENT DESCRIBES THE PAIN ACHING, SHARP, STABBING, THROBBING, AND CONTINUOUS WITH A PAIN SCORE OF 6-9/10 DEPENDING ON PHYSICAL ACTIVITY. THE PATIENT SAYS THAT SHE HAS HAD THIS PAIN FOR ABOUT 4 YEARS AFTER HAVING SURGERY ON HER THYROID GLAND WHEN THERE WERE COMPLICATIONS THAT INVOLVED HER NEEDING HER CAROTID ARTERY REPAIRED AND A THORACOTOMY. THE PATIENT SAYS THAT SHE HAS ALSO BEEN HAVING PAIN OVER HER NECK AND RIGHT SHOULDER. THE PATIENT SAYS THAT SHE HAS TRIED SEVERAL MEDICATIONS INCLUDING NSAIDS, LYRICA, GABAPENTIN, AND CYMBALTA, BUT HER PAIN HAS PERSISTED. THE PATIENT SAYS THAT SHE IS CURRENTLY USING 3 OXYCODONE TABLETS PER DAY AND THAT HAS BEEN HELPING HER. PATIENT DENIES UNEXPLAINABLE WEIGHT LOSS, FEVER, CHILLS, NEW CHANGES ON HER URINARY OR BOWEL CONTROL. FALL RISK SCREENING: SCREENING :NO FALLS REPORTED IN THE LAST YEAR CURRENT MEDICATIONS TAKING CALCIUM 1500 MG TABLET ORALLY TAKING VITAMIN D 400 UNIT CAPSULE 2 CAPSULES ORALLY ONCE A DAY TAKING REGLAN 10 MG TABLET ORALLY TAKING MECLIZINE HCL 25 MG CAPSULE ORALLY TAKING LASIX 20 MG TABLET 1 TABLET ORALLY ONCE A DAY, NOTES: PRN TAKING FLEXERIL 1 TAB ORAL , NOTES: 10 MG TAKING ZOLOFT 100 MG TABLET 2 TABLETS ORALLY ONCE A DAY TAKING PERCOCET 10-325 MG TABLET 1 TABLET NEEDED ORALLY EVERY 6 HRS TAKING MELOXICAM 7.5 MG TABLET 1 TABLET ORALLY ONCE A DAY TAKING SENNA-S 8.6-50 MG TABLET 1 TABLET IN THE EVENING NEEDED ORALLY ONCE A DAY TAKING COLACE 100 MG CAPSULE 1 CAPSULE NEEDED ORALLY ONCE A DAY TAKING MIRALAX - PACKET 1 PACKET MIXED WITH 8 OUNCES OF FLUID ORALLY ONCE A DAY TAKING HYDROXYZINE HCL 25 MG TABLET 1 TABLET NEEDED ORALLY EVERY 8 HRS TAKING BOTOX 200 UNIT SOLUTION RECONSTITUTED DIRECTED INJECTION NOT-TAKING PERCOCET 5-325 MG TABLET 1 TABLET NEEDED ORALLY EVERY 6 HRS NOT-TAKING GABAPENTIN 300 MG CAPSULE 1 CAPSULE ORALLY THREE TIMES A DAY MEDICATION LIST REVIEWED AND RECONCILED WITH THE PATIENT PAST MEDICAL HISTORY HYPERPARATHYROIDISM IBSC CHRONIC KIDNEY STONES CORONARY ARTERY DISEASE CHRONIC BACK ISSUES LESIONS ON BRAIN BEING WORKED UP BY NEUROLOGIST FOR MS CARPAL TUNNEL BILATERAL RAYNAUDS MIGRAINES AUTONOMIC NEUROPATHY ALLERGIES N.K.D.A. SURGICAL HISTORY TONSILLECTOMY CESARENA SECTION 3X'S THYNEECTOMY PARATHROIDECTOMY MEDIALSTNASLSTERNOTOMY COROTID REPAIR WIRE REMOVAL FROM CHEST FAMILY HISTORY FATHER: ALIVE, TWO TOTAL KNEES, GALL BLADDER REMOVED, DIAGNOSED WITH HYPERTENSION MOTHER: ALIVE 1 SON(S) , 2 DAUGHTER(S) . MOTHER HAS DDD,DYSTONIA, PAKINSONS,ENDOMETROSIS \NMATERNAL GRANDFATHER LUNG CA. CANCER RUNS IN FAMILY OF EVERYTHING NO CERTAIN KIND OF CANCER. SOCIAL HISTORY GENERAL: TOBACCO USE ARE YOU A:NONSMOKER LATEX QUESTIONNAIRE LATEX ALLERGY : HAVE YOU EVER DEVELOPED ANY TYPE OF REACTION AFTER HANDLING LATEX PRODUCTS SUCH RUBBER GLOVES, CONDOMS, DIAPHRAGMS, BALLOONS, SOCKS, OR UNDERWEAR?NO LATEX ALLERGY : HAVE YOU EVER DEVELOPED ANY TYPE OF REACTION DURING OR AFTER DENTAL APPOINTMENT, VAGINAL/RECTAL EXAMINATION, SURGICAL PROCEDURE, OR ANY OTHER EXPOSURE?NO LATEX RISK : HAVE YOU EVER HAD ANY DIFFICULTY BREATHING OR HIVES AFTER EATING OR HANDLING ANY FRUITS, OR VEGETABLES; SUCH KIWI, BANANAS, STONE FRUITS, OR CHESTNUTSNO LATEX RISK : DO YOU HAVE A PREVIOUS PERSONAL HISTORY OF MORE THAN NINE SURGERIES, SPINA BIFIDA, OR REPEATED CATHERTIZATIONS? NO LATEX RISK : ARE YOU FREQUENTLY EXPOSED TO LATEX PRODUCTS IN YOUR OCCUPATION?NO DATE ASKED : 06/04/2018 ALCOHOL SCREENING DID YOU HAVE A DRINK CONTAINING ALCOHOL IN THE PAST YEAR?NO POINTS0 INTERPRETATIONNEGATIVE RECREATIONAL DRUG USE DRUG USE?NO CAFFEINE CAFFEINE USE?YES HOW OFTEN AND HOW MUCH? 2 CUPS /DAY SEXUAL HX HAD SEX IN THE LAST 12 MONTHS (VAGINAL, ORAL, OR ANAL)?YES WITHMEN ONLY USE PROTECTION?NO HAVE YOU EVER HAD AN STD?NO CATHOLIC NO HOAHAOISM BELIEFS THAT WOULD IMPACT HEALTH CARE. LANGUAGE CONGOLESE. 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 DIET: REGULAR. EXERCISE: NONE. MARITAL STATUS: SINGLE. NEW PATIENT PAIN DIARY PATIENT DESCRIBES PAIN :ACHING, HAVE IT ALL THE TIME, SHARP, STABBING PRECIPITATING FACTORS PAIN STARTED 5 YEARS AGO FROM POST SURGICAL PAIN. TRIGGERED BY PHYSICAL ACTIVITY, REPETITIVE MOVEMENT, LAYING ON SIDE TOO LONG AND DRASTIC CHANGES IN WEATHER ALLEVIATING FACTORS MEDICATIONS, REDUCED PHYSICAL ACTIVITY, POSITION CHANGES, RESTING IMPACT ON FUNCTION INABILITY TO DO NORMAL ACTIVITY IS THERE A CHANCE YOU COULD BE ?NO HAVE YOU BEEN SICK IN THE LAST WEEK (COLD, COUGH, FEVER, FLU, ETC)NO DO YOU HAVE ANY RASHES OR OPEN SORES?NO ANY CHANGE IN BOWEL OR BLADDER CONTROL?NO ARE YOU ALLERGIC TO SHELLFISH OR IV DYE?NO ARE YOU DIABETIC?NO DO YOU HAVE A PACEMAKER OR DEFIBRILLATOR?NO ANY NEW PROBLEMS WITH MEDICINES OR NEW ALLERGIESNO ANY NEW PATTERNS OF PAIN OR NUMBNESS?YES SHOULDER AND NECK ANY CHANGE IN YOUR MEDICAL CONDITION?NO HAVE YOU FALLEN IN THE LAST 6 MONTHS?NO DO YOU USE ANY TYPE OF TOBACCO (SMOKE, SMOKELESS, CHEW, ETC.)NO ARE YOU ABUSED, NEGLECTED, OR IN AN UNSAFE ENVIRONMENT?NO DO YOU HAVE THOUGHTS OF HURTING YOURSELF OR SOMEONE ELSE?NO DO YOU NEED ANY PRESCRIPTIONS?YES PERCOCET, MELOXICAM, FLEXERIL PRESCRIBED BY NE SPINE AND WELLNESS DO YOU HAVE ANY OTHER QUESTIONS OR CONCERNS?NO INTENSITY SCALE REVIEWEDNUMBER PAIN CLINIC PFS, CLERGY, PUBLIC HEALTH REFERRALS WAS THE PROVIDER NOTIFIED OF ANY PERTINENT INFO?YES HAS THE PATIENT BEEN EDUCATED REGARDING HIS/HER PLAN OF CARE?YES HAS THE PATIENT BEEN EDUCATED REGARDING PAIN, THE RISK FOR PAIN, THE IMPORTANCE OF EFFECTIVE PAIN MANAGEMENT, AND THE PAIN ASSESSMENT PROCESS?YES ADVANCE DIRECTIVE ADVANCE DIRECTIVE DISCUSSED WITH PATIENT:YES PT DECLINES ASSISTANCE WITH FILLING OUT HCP AND DECLINES PAPERWORK HOSPITALIZATION/MAJOR DIAGNOSTIC PROCEDURE SURGERY RELATED REVIEW OF SYSTEMS REVIEWED BY: PROVIDER: NALINI KONG MD . CONSTITUTIONAL: ANY CHANGE IN YOUR MEDICAL CONDITION? YES CURRENTLY HAS SPOT ON C-SPINE THAT IS BEING WORKED UP BY DR ANDREA MADRID NEUROLOGY . CHILLS NO . FEVER NO . INFECTION: DO YOU HAVE NEW INFECTIONS? NO . DO YOU HAVE HISTORY OF MRSA? NO . MUSCULOSKELETAL: ANY NEW PATTERNS OF PAIN OR NUMBNESS? NO . SYTEMIC LUPUS NO . GASTROENTEROLOGY: ANY NEW CHANGE IN BOWEL CONTROL? NO . BARRETTS ESOPHAGUS NO . CIRRHOSIS NO . HEPATITIS NO . LIVER FAILURE NO . ACID REFLUX NO . UNEXPLAINED WEIGHT LOSS NO . GENITOURINARY: ANY NEW CHANGE IN BLADDER CONTROL? NO . IS THERE A CHANCE YOU COULD BE ? NO . HEMATOLOGY/LYMPH: DO YOU TAKE ANY BLOOD THINNERS? (FOR EXAMPLE- COUMADIN, PLAVIX, AGGRENOX, PLATEL, PRADAXA, OR XARELTO) NO . WHEN WAS YOUR LAST DOSE? DATE: TIME: . LOW PLATELET COUNT NO . SICKLE CELL DISEASE NO . VON WILLIEBRANDS NO . FACTOR V LEIDEN NO . THALLASEMIA NO . ANEMIA NO . EASY BRUISING NO . NEUROLOGY: HAVE YOU FALLEN IN THE PAST 12 MONTHS? NO . ANY NEW EXTREMITY NUMBNESS OR WEAKNESS? NO . HEAD INJURY NO . DEMENTIA NO . CEREBRAL PALSY NO . MULTIPLE SCLEROSIS NO . DIZZINESS NO . HEADACHE NO . STROKES NO . VERTIGO NO . CARDIOLOGY: DO YOU HAVE A PACEMAKER OR DEFIBRILLATOR? NO . ANGINA NO . HEART ATTACK NO . HEART SURGERY NO . CONGESTIVE HEART FAILURE/FLUID OVERLOAD NO . CHEST PAIN NO . HIGH BLOOD PRESSURE NO . IRREGULAR HEART BEAT NO . RESPIRATORY: HAVE YOU BEEN SICK IN THE PAST WEEK? NO . FEVER NO . FLU LIKE SYMPTOMS? NO . CPAP NO . BYPAP NO . ASTHMA NO . EMPHYSEMA NO . CHRONIC LUNG DISEASES NO . SHORTNESS OF BREATH ON EXERTION NO . COUGH NO . SNORING NO . INTEGUMENTARY: DO YOU HAVE ANY RASHES OR OPEN SORES? NO . ALLERGIC/IMMUNO: ARE YOU ALLERGIC TO IV DYE? NO . ANY NEW ALLERGIES? NO . PSYCHIATRIC: DO YOU HAVE THOUGHTS OF HURTING YOURSELF OR SOMEONE ELSE? NO . ARE YOU ABUSED, NEGLECTED, OR IN AN UNSAFE ENVIRONMENT? NO . ENDOCRINOLOGY: ARE YOU DIABETIC? NO . THYROID DISORDER NO . OTHER: DO YOU NEED ANY PRESCRIPTIONS? YES, FLEXERIL, PERCOCET, MELOXICAM . IF YES, PLEASE LIST: ____ . ANY NEW PROBLEMS WITH YOUR MEDICATIONS? NO . WHEN DID YOU LAST EAT? ____ . WHEN DID YOU LAST DRINK? ____ . WHAT DID YOU LAST DRINK? ____ . NAME OF PERSON DRIVING YOU HOME? ____ . DO YOU HAVE ANY OTHER QUESTIONS OR CONCERNS NO . VITAL SIGNS WT 142.0 LBS, HT 5'2, BMI 27.73 INDEX, BP 126/80 MM HG, HR 95 /MIN, RR 18 /MIN, TEMP 99.6 F, OXYGEN SAT % 95%, SAFE IN ENV? (Y/N) Y, NA INITIALS DE 11:09, REVIEWED BY: AUSTIN. EXAMINATION GENERAL EXAMINATION: PATIENT IS ALERT O X 3 AND COOPERATIVE. LUNGS CLEAR, TO AUSCULTATION. HEART: NO MURMURS OR GALLOPS; FACIAL CRANIAL NERVES ARE GROSSLY NORMAL. GOOD SYMMETRY OF FACIAL MUSCLE MOVEMENT. NORMAL VISUAL CHAVEZ. THERE IS A SURGICAL SCAR OVER THE CHEST WALL MEASURING APPROXIMATELY 8 INCHES WITH HYPERPATHIA. TENDERNESS IN THE NECK AREA. PRESENCE OF TRIGGER POINTS AND BANDS OF TISSUE WITH RESTRICTION OF MOVEMENT OF THE BACK. 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 BARRIENTOS'S PAIN MANAGEMENT CASE. THE PATIENT MAY CONSIDER TRIGGER POINT INJECTIONS OR A SCAR NEUROMA INJECTION IN THE FUTURE, BUT WOULD LIKE TO CONTINUE USING MEDICATION MANAGEMENT AT THIS TIME BECAUSE SHE SAYS IT HAS BEEN HELPING HER. I WILL SEND A PROVIDER TO PROVIDER AGREEMENT FORM TO HER PRIMARY CARE PHYSICIAN IN REGARDS TO PRESCRIBING NARCOTICS. THE PATIENT WILL FOLLOW UP IN 1 MONTH. INSTRUCTIONS WERE GIVEN, QUESTIONS WERE ANSWERED, PATIENT REPORTS UNDERSTANDING AND AGREES WITH THE PLAN. I, MIGEL DIEZ, DOCUMENTED THE ABOVE INFORMATION ACTING A SCRIBE FOR DR. KONG. I HAVE REVIEWED THE ABOVE DOCUMENT, WRITTEN BY MIGEL RAMIREZ AND I VERIFY THAT IT IS ACCURATE. DEAR DR. VANCE:THANK YOU FOR YOUR KIND REFERRAL OF MRS. BARRIENTOS. IF YOU WANT TO DISCUSS HER CASE WITH ME PLEASE CALL ME AT THE PAIN CENTER AT [phone]. SINCERELY,NALINI KONG, [facility] . PROCEDURE CODES FA211 ESTABILISHED PATIENT [facility] F[facility] CHARGE [id number] CURRENT MEDS W/DOSAGES DOCUMENTED G8730 PAIN ASSESS POS TOOL F/U PLAN DOC DISPOSITION & COMMUNICATION FOLLOW UP 4 WEEKS ELECTRONICALLY SIGNED BY NALINI KONG MD, MD ON 06/19/2018 AT 05:32 PM EDT DISCLAIMER : THIS IS A VISIT SUMMARY EXTRACTED FROM THE [employer] CHART. IT IS NOT A COPY OF THE [employer] PROGRESS NOTE. MTDD
== END ==
LOC: M PAIN 11:00
PROVIDERS: ATTEND Anesthesiology
DX: M54.6 Pain in thoracic spine (principal); G89.29 Other chronic pain; L90.5 Scar conditions and fibrosis of skin; M79.18 Myalgia, other site; M54.2 Cervicalgia; I73.00 Raynaud's syndrome without gangrene; G43.909 Migraine, unspecified, not intractable, without status migrainosus; Z79.899 Other long term (current) drug therapy; Z98.890 Other specified postprocedural states; Z86.79 Personal history of other diseases of the circulatory system

== ENCOUNTER 2018-06-15 09:05 | Day surgery (SDC) | payer OTHER ==
[~2018-06-15] VITALS: Ht 157.5 cm; Wt 63.5 kg
[~2018-06-15 09:05] MED LIST changes: +LIDOCAINE 1% MDV 20ML VIAL SQ PRN; +LR 1,000 ML IV ONE
[2018-06-15] MEDS ORDERED: LIDOCAINE 2% INJ 100 MG/5 ML SDV (FOR ANES.) As Ordered ONE (09:19)
[2018-06-15] MEDS ORDERED: METOCLOPRAMIDE INJ 10MG/2ML VIAL (J2765) As Ordered ONE (09:19)
[2018-06-15] MEDS ORDERED: ONDANSETRON 4MG/2ML VIAL (J2405) As Ordered ONE (09:19)
[2018-06-15] MEDS ORDERED: MIDAZOLAM INJ 2 MG/2 ML VIAL (J2250) As Ordered ONE (09:19)
[2018-06-15] MEDS ORDERED: KETOROLAC 60 MG/2 ML VIAL (J1885) As Ordered ONE (09:19)
[2018-06-15] MEDS ORDERED: ROCURONIUM BROMIDE 50 MG/5 ML VIAL As Ordered ONE (09:19)
[2018-06-15] MEDS ORDERED: PROPOFOL 200 MG/20 ML VIAL As Ordered ONE (09:19)
[2018-06-15] MEDS ORDERED: fentaNYL 100 MCG/2 ML INJECTION (J3010) As Ordered ONE (09:20)
[2018-06-15] MEDS ORDERED: BUPIVACAINE HCL 0.25% 30 ML VIAL As Ordered ONE (09:38)
[2018-06-15] MEDS ORDERED: LIDOCAINE 1% SDV INJ 30 ML VIAL As Ordered ONE (09:38)
[2018-06-15 09:51] LABS: URINE PREG TEST NEGATIVE (NEGATIVE)
[2018-06-15] MEDS ORDERED: MIDAZOLAM INJ 2 MG/2 ML VIAL (J2250) IV ONE (10:15)
[2018-06-15] MEDS ORDERED: HYDROmorphone HCL 2 MG/ML 1ML VIAL (J1170) As Ordered ONE (10:54)
[2018-06-15] MEDS ORDERED: dexameTHASONE 4 MG/ML 1ML VIAL (J1100) As Ordered ONE (11:22)
--- NOTE | 2018-06-15 12:15 | ROOPDOC ---
[facility] Report Of Operation Report of Operation DATE OF PROCEDURE: 06/15/18 PREPROCEDURE DIAGNOSES: Umbilical/supraumbilical hernia. POSTPROCEDURE DIAGNOSES: Supraumbilical hernia. PROCEDURE: Laparoscopic repair of supraumbilical hernia with mesh (IPOM). SURGEON: Scott Montague MD ANESTHESIA: Gen. anesthesia. ESTIMATED BLOOD LOSS: Approximately 10 mL. COMPLICATIONS: None. REMARKS: Patient is a 33-year-old female who is complaining of discomfort from a lump located just above her umbilicus that she has noted when she was . On examination this was not reducible.. PROCEDURE NOTE: Small fascial defect at the insertion of the falciform ligament above the umbilicus containing incarcerated preperitoneal fat tissue. No hernia noted underneath the umbilical skin cleft.. DESCRIPTION OF PROCEDURE: Patient was brought to the operating room for laparoscopic umbilical hernia repair. She received 2 g of Ancef IV preoperatively for wound prophylaxis. She was placed supine on the operating room table, compression boots placed in both lower extremities for DVT prophylaxis. General endotracheal anesthesia then started without any complication. Her abdomen was widely prepped and draped in usual sterile fashion. Entry into into the abdomen done through a small incision over the left upper quadrant area subcostal, slightly lateral to accommodate the mesh placement. Veress needle was inserted on a controlled fashion. Intra-abdominal placement confirmed with saline drop technique. CO2 insufflation started to pressure 15 mmHg. Using the same incision a 5 mm Visiport was placed under direct vision of laparoscope. The area underneath the insertion site was inspected for injury and none was found. The table was turned right side down to create space for the left side for the working ports. A second 5 mm working port was placed over the left lower quadrant area above the anterior superior iliac spine level. Operative findings: On Diagnostic laparoscopy, she has a relatively thin s tretched out abdominal wall with about a 2 cm diastases of her midline muscles from the xiphoid with slight widening to about 3 cm below the umbilicus. I palpated around at the midline from the area below the umbilicus to the epigastric area. No noticeable hernia noted underneath the umbilical cleft though the area is thin and somewhat weak. I noticed a small protrusion through the insertion of the falciform ligament about 3 cm above the umbilical skin cleft. This area was cleared off the preperitoneal tissue and the small 1 cm defect is noted containing multiple lobulated fat tissue that was reduced back and removed until no further nodularity center noted by palpation. There are some preperitoneal fat tissue that was also inside the hernia space above the fascial defect was reduced back inside the abdomen, until no further nodularity that I could feel on palpation of the area above the hernia defect. The fatty adipose tissue invested in the peritoneum surrounding the hernia defect was cleared off with Harmonic scalpel. I also visualized the gallbladder where she was having some complaints of right upper quadrant pain and this appears normal, thin walled and only mildly distended. After reducing the contents of the hernia defect back into the abdomen I checked for adequate hemostasis, I chose a 9 cm Parietex composite mesh. I labeled the rough side that will adhere to the abdominal wall, then placed 4 transabdominal sutures ( 2 undyed, 2 dyed) at the 3,6,9 and 12 o'clock position, rolled this tightly and placed this inside the abdomen temporarily removing the left lower quadrant 5 mm port and replacing it back after the mesh and sutures were fully inside the abdomen. The mesh was then unrolled and positioned directly centered underneath the fascial defect and oriented so as the rough side is facing the abdominal wall. Previously marked areas at the 12 3, 9 and 6 o'clock position in the abdominal wall was punctured with a 15 blade scalpel and the suture passer was then used to retrieve the transabdominal sutures to position the mesh centered at the fascial defect. The abdominal pressure was increased to 12 mmHg. The mesh covers up to beyond the umbilical cleft area. Once the mesh was adequately positioned and centered, the abdominal pressure was decreased to 10 mmHg.Two rows of secure strap tacking javed were then placed circumferentially to affix the mesh to the abdominal wall with the outside rim of tacks placed 2 cm apart and inside rim about 2 cm beyond the fascial defect. The transabdominal sutures were tied snug but not tight. We inspected the mesh for proper placement and this appears to be aligned well to the abdominal wall, no active bleeding noted associated with the tacks. We surveyed the abdomen for any injury. The preperitoneal fat tissue that we reduced back in the abdomen were retrieved. The abdomen was deflated. All ports were removed. The skin incisions at the port site were closed with 4-0 Monocryl in subsequent fashion. Dermabond dressing was placed at the port sites and the transabdominal sutures sites. Patient simply awakened, extubated and brought to recovery room stable. All counts of sponges and instruments were verified correct. SCOTT MONTAGUE MD Jun 15, 2018 12:15
[2018-06-15] MEDS: fentaNYL 100 MCG/2 ML INJECTION (J3010) IV PRN ×4 (12:19→12:41)
[2018-06-15] MEDS ORDERED: HYDROMORPHONE HCL 0.5 MG/ 0.5 ML SYRINGE (J1170 PER 1) IV PRN (12:30)
[2018-06-15] MEDS ORDERED: PROMETHAZINE INJ 25 MG/ML VIAL (J2550) As Ordered ONE (12:30)
[2018-06-15] MEDS ORDERED: oxyCODONE 5MG TAB PO PRN (12:30)
[2018-06-15] MEDS ORDERED: LR 1,000 ML IV SCH (12:30)
[2018-06-15] MEDS ORDERED: PERCOCET 5MG/325MG TAB PO PRN (12:30)
[2018-06-15] MEDS ORDERED: ONDANSETRON 4MG/2ML VIAL (J2405) IV PRN ×2 (12:30)
[2018-06-15] MEDS: oxyCODONE 5MG TAB PO PRN ×2 (12:36→13:45)
[2018-06-15] MEDS ORDERED: SUGAMMADEX SODIUM 500 MG/5 ML VIAL (BRIDION) As Ordered ONE (12:59)
[2018-06-15] MEDS ORDERED: PROMETHAZINE INJ 25 MG/ML VIAL (J2550) IV ONE (13:30)
[2018-06-15] MEDS ORDERED: oxyCODONE 5MG TAB As Ordered ONE (13:44)
[2018-06-15 14:50] VITALS: BP 119/90
[2018-06-15] MEDS ORDERED: KETOROLAC 30 MG/ML VIAL (J1885) IV PRN (18:00)
== END 2018-06-15 15:10 | disposition home or self-care (01) ==
LOC: M SDC 09:05
PROVIDERS: ATTEND Surgery
DX: K43.9 Ventral hernia without obstruction or gangrene (principal); E21.3 Hyperparathyroidism, unspecified; K59.00 Constipation, unspecified; K58.8 Other irritable bowel syndrome; F43.10 Post-traumatic stress disorder, unspecified; F17.210 Nicotine dependence, cigarettes, uncomplicated; F41.9 Anxiety disorder, unspecified; F32.9 Major depressive disorder, single episode, unspecified; Z79.899 Other long term (current) drug therapy
CPT/HCPCS: 49652; 84703; C1781; J1100; J1170; J1885; J2250; J2405; J2765; J3010

== ENCOUNTER → 2018-07-24 | Outpatient (CLI) | payer OTHER, MEDICAID ==
[~2018-07-24] MED LIST changes: -LIDOCAINE 1% MDV 20ML VIAL SQ PRN; -LR 1,000 ML IV ONE
--- NOTE | 2018-08-04 23:30 | ECWPNPC ---
PATIENT NAME: REBEKAH BARRIENTOS : 1985 GENDER: FEMALE VISIT DATE: 07/24/2018 DISCHARGE DATE: 07/24/18 1339 VISIT LOCKED DATE TIME: PHYSICIAN: NALINI KONG MD RESOURCE: NALINI KONG MD REASON FOR APPOINTMENT 1. CHRONIC THORACIC PAIN HISTORY OF PRESENT ILLNESS HISTORY OF PRESENT ILLNESS: PAIN THE PATIENT DESCRIBES THE PAIN... 33 YEAR OLD FEMALE PATIENT WITH A HISTORY OF CHRONIC THORACIC AND CHEST PAIN. THE PATIENT DESCRIBES THE PAIN STABBING, SHOOTING, AND CONTINUOUS WITH A PAIN SCORE OF 1-8/10 DEPENDING ON PHYSICAL ACTIVITY AND MEDICATION USE. THE PATIENT SAYS THAT SHE HAS DIFFICULTIES WEARING A BRA DUE TO THE PAIN. THE PATIENT IS CURRENTLY USING PERCOCET TO AID IN PAIN RELIEF AND STATES THAT SHE USES 4 TABLETS PER DAY, BUT SOMETIMES HAS TO USE UP TO 6 IF SHE IS MORE ACTIVE. THE PATIENT SAYS THAT SHE HAS TRIED SEVERAL MEDICATIONS IN THE PAST, BUT THE PERCOCET HAS BEEN THE ONLY THING THAT HAS HELPED. THE PATIENT DENIES THE ABUSE OF HER MEDICATION AND STATES SHE IS ONLY USING IT FOR PAIN CONTROL. PATIENT DENIES UNEXPLAINABLE WEIGHT LOSS, FEVER, CHILLS, NEW CHANGES ON HER URINARY OR BOWEL CONTROL. FALL RISK SCREENING: SCREENING :NO FALLS REPORTED IN THE LAST YEAR CURRENT MEDICATIONS TAKING CALCIUM 1500 MG TABLET ORALLY TAKING VITAMIN D 400 UNIT CAPSULE 2 CAPSULES ORALLY ONCE A DAY TAKING REGLAN 10 MG TABLET ORALLY TAKING MECLIZINE HCL 25 MG CAPSULE ORALLY TAKING LASIX 20 MG TABLET 1 TABLET ORALLY ONCE A DAY, NOTES: PRN TAKING FLEXERIL 1 TAB ORAL , NOTES: 10 MG TAKING ZOLOFT 100 MG TABLET 2 TABLETS ORALLY ONCE A DAY TAKING PERCOCET 10-325 MG TABLET 1 TABLET NEEDED ORALLY EVERY 6 HRS MDD 6 TAKING MELOXICAM 7.5 MG TABLET 1 TABLET ORALLY BID TAKING SENNA-S 8.6-50 MG TABLET 1 TABLET IN THE EVENING NEEDED ORALLY ONCE A DAY TAKING COLACE 100 MG CAPSULE 1 CAPSULE NEEDED ORALLY ONCE A DAY TAKING MIRALAX - PACKET 1 PACKET MIXED WITH 8 OUNCES OF FLUID ORALLY ONCE A DAY TAKING BOTOX 200 UNIT SOLUTION RECONSTITUTED DIRECTED INJECTION NOT-TAKING HYDROXYZINE HCL 25 MG TABLET 1 TABLET NEEDED ORALLY EVERY 8 HRS UNKNOWN PERCOCET 5-325 MG TABLET 1 TABLET NEEDED ORALLY EVERY 6 HRS UNKNOWN GABAPENTIN 300 MG CAPSULE 1 CAPSULE ORALLY THREE TIMES A DAY MEDICATION LIST REVIEWED AND RECONCILED WITH THE PATIENT PAST MEDICAL HISTORY HYPERPARATHYROIDISM IBSC CHRONIC KIDNEY STONES CORONARY ARTERY DISEASE CHRONIC BACK ISSUES LESIONS ON BRAIN BEING WORKED UP BY NEUROLOGIST FOR MS CARPAL TUNNEL BILATERAL RAYNAUDS MIGRAINES AUTONOMIC NEUROPATHY ALLERGIES N.K.D.A. SURGICAL HISTORY TONSILLECTOMY CESARENA SECTION 3X'S THYNEECTOMY PARATHROIDECTOMY MEDIALSTNASLSTERNOTOMY COROTID REPAIR WIRE REMOVAL FROM CHEST HERNIA REPAIR- FAMILY HISTORY FATHER: ALIVE, TWO TOTAL KNEES, GALL BLADDER REMOVED, DIAGNOSED WITH HYPERTENSION MOTHER: ALIVE 1 SON(S) , 2 DAUGHTER(S) . MOTHER HAS DDD,DYSTONIA, PAKINSONS,ENDOMETROSIS \NMATERNAL GRANDFATHER LUNG CA. CANCER RUNS IN FAMILY OF EVERYTHING NO CERTAIN KIND OF CANCER. SOCIAL HISTORY GENERAL: TOBACCO USE ARE YOU A:NONSMOKER DIET: REGULAR. LANGUAGE EQUATORIAL GUINEAN. DOMESTIC VIOLENCE DO YOU FEEL SAFE IN YOUR ENVIRONMENT?YES NEW PATIENT PAIN DIARY PATIENT DESCRIBES PAIN :ACHING, HAVE IT ALL THE TIME, SHARP, STABBING PRECIPITATING FACTORS PAIN STARTED 5 YEARS AGO FROM POST SURGICAL PAIN. TRIGGERED BY PHYSICAL ACTIVITY, REPETITIVE MOVEMENT, LAYING ON SIDE TOO LONG AND DRASTIC CHANGES IN WEATHER ALLEVIATING FACTORS MEDICATIONS, REDUCED PHYSICAL ACTIVITY, POSITION CHANGES, RESTING IMPACT ON FUNCTION INABILITY TO DO NORMAL ACTIVITY IS THERE A CHANCE YOU COULD BE ?NO HAVE YOU BEEN SICK IN THE LAST WEEK (COLD, COUGH, FEVER, FLU, ETC)NO DO YOU HAVE ANY RASHES OR OPEN SORES?NO ANY CHANGE IN BOWEL OR BLADDER CONTROL?NO ARE YOU ALLERGIC TO SHELLFISH OR IV DYE?NO ARE YOU DIABETIC?NO DO YOU HAVE A PACEMAKER OR DEFIBRILLATOR?NO ANY NEW PROBLEMS WITH MEDICINES OR NEW ALLERGIESNO ANY NEW PATTERNS OF PAIN OR NUMBNESS?YES SHOULDER ANY CHANGE IN YOUR MEDICAL CONDITION?NO HAVE YOU FALLEN IN THE LAST 6 MONTHS?NO DO YOU USE ANY TYPE OF TOBACCO (SMOKE, SMOKELESS, CHEW, ETC.)NO ARE YOU ABUSED, NEGLECTED, OR IN AN UNSAFE ENVIRONMENT?NO DO YOU HAVE THOUGHTS OF HURTING YOURSELF OR SOMEONE ELSE?NO DO YOU NEED ANY PRESCRIPTIONS?YES PERCOCET, MELOXICAM, FLEXERIL DO YOU HAVE ANY OTHER QUESTIONS OR CONCERNS?NO INTENSITY SCALE REVIEWEDNUMBER RECREATIONAL DRUG USE DRUG USE?NO EXERCISE: NONE. LEARNING BARRIERS / SPECIAL NEEDS BARRIERS TO LEARNING?NO HEARING IMPAIRED?NO VISION IMPAIRED?NO COGNITIVELY IMPAIRED?NO READINESS TO LEARN?YES LEARNING PREFERENCES?NO LEARNING CAPABILITIES PRESENT?YES EMOTIONAL BARRIERS?NO PAIN CLINIC PFS, CLERGY, PUBLIC HEALTH REFERRALS WAS THE PROVIDER NOTIFIED OF ANY PERTINENT INFO?YES HAS THE PATIENT BEEN EDUCATED REGARDING HIS/HER PLAN OF CARE?YES HAS THE PATIENT BEEN EDUCATED REGARDING PAIN, THE RISK FOR PAIN, THE IMPORTANCE OF EFFECTIVE PAIN MANAGEMENT, AND THE PAIN ASSESSMENT PROCESS?YES LATEX QUESTIONNAIRE LATEX ALLERGY : HAVE YOU EVER DEVELOPED ANY TYPE OF REACTION AFTER HANDLING LATEX PRODUCTS SUCH RUBBER GLOVES, CONDOMS, DIAPHRAGMS, BALLOONS, SOCKS, OR UNDERWEAR?NO LATEX ALLERGY : HAVE YOU EVER DEVELOPED ANY TYPE OF REACTION DURING OR AFTER DENTAL APPOINTMENT, VAGINAL/RECTAL EXAMINATION, SURGICAL PROCEDURE, OR ANY OTHER EXPOSURE?NO LATEX RISK : HAVE YOU EVER HAD ANY DIFFICULTY BREATHING OR HIVES AFTER EATING OR HANDLING ANY FRUITS, OR VEGETABLES; SUCH KIWI, BANANAS, STONE FRUITS, OR CHESTNUTSNO LATEX RISK : DO YOU HAVE A PREVIOUS PERSONAL HISTORY OF MORE THAN NINE SURGERIES, SPINA BIFIDA, OR REPEATED CATHERTIZATIONS? NO LATEX RISK : ARE YOU FREQUENTLY EXPOSED TO LATEX PRODUCTS IN YOUR OCCUPATION?NO DATE ASKED : 06/04/2018 CAFFEINE CAFFEINE USE?YES HOW OFTEN AND HOW MUCH? 2 CUPS /DAY ADVANCE DIRECTIVE ADVANCE DIRECTIVE DISCUSSED WITH PATIENT:YES PT DECLINES ASSISTANCE WITH FILLING OUT HCP AND DECLINES PAPERWORK VOODOO NO CHRISTIANITY BELIEFS THAT WOULD IMPACT HEALTH CARE. MARITAL STATUS: SINGLE. 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 SEXUAL HX HAD SEX IN THE LAST 12 MONTHS (VAGINAL, ORAL, OR ANAL)?YES WITHMEN ONLY USE PROTECTION?NO HAVE YOU EVER HAD AN STD?NO HOSPITALIZATION/MAJOR DIAGNOSTIC PROCEDURE SURGERY RELATED REVIEW OF SYSTEMS REVIEWED BY: PROVIDER: NALINI KONG MD . CONSTITUTIONAL: ANY CHANGE IN YOUR MEDICAL CONDITION? NO . CHILLS NO . FEVER NO . INFECTION: DO YOU HAVE NEW INFECTIONS? YES STREP THROAT AND FINISHED ANTIBIOTIC LAST WEEK . DO YOU HAVE HISTORY OF MRSA? NO . MUSCULOSKELETAL: ANY NEW PATTERNS OF PAIN OR NUMBNESS? INCREASED NUMBNESS IN RIGHT HAND ITS NOT NEW BUT HAS INCRREASED . GASTROENTEROLOGY: ANY NEW CHANGE IN BOWEL CONTROL? NO . GENITOURINARY: ANY NEW CHANGE IN BLADDER CONTROL? NO . IS THERE A CHANCE YOU COULD BE ? NO . HEMATOLOGY/LYMPH: DO YOU TAKE ANY BLOOD THINNERS? (FOR EXAMPLE- COUMADIN, PLAVIX, AGGRENOX, PLATEL, PRADAXA, OR XARELTO) NO . WHEN WAS YOUR LAST DOSE? DATE: TIME: . NEUROLOGY: HAVE YOU FALLEN IN THE PAST 12 MONTHS? NO . ANY NEW EXTREMITY NUMBNESS OR WEAKNESS? NO . CARDIOLOGY: DO YOU HAVE A PACEMAKER OR DEFIBRILLATOR? NO . RESPIRATORY: HAVE YOU BEEN SICK IN THE PAST WEEK? NO . FEVER NO . FLU LIKE SYMPTOMS? NO . COUGH NO . INTEGUMENTARY: DO YOU HAVE ANY RASHES OR OPEN SORES? NO . ALLERGIC/IMMUNO: ARE YOU ALLERGIC TO IV DYE? NO . ANY NEW ALLERGIES? NO . PSYCHIATRIC: DO YOU HAVE THOUGHTS OF HURTING YOURSELF OR SOMEONE ELSE? NO . ARE YOU ABUSED, NEGLECTED, OR IN AN UNSAFE ENVIRONMENT? NO . ENDOCRINOLOGY: ARE YOU DIABETIC? NO . OTHER: DO YOU NEED ANY PRESCRIPTIONS? YES . IF YES, PLEASE LIST: ____ . ANY NEW PROBLEMS WITH YOUR MEDICATIONS? NO . WHEN DID YOU LAST EAT? ____ . WHEN DID YOU LAST DRINK? ____ . WHAT DID YOU LAST DRINK? ____ . NAME OF PERSON DRIVING YOU HOME? ____ . DO YOU HAVE ANY OTHER QUESTIONS OR CONCERNS NO . VITAL SIGNS WT 143 LBS, HT 5'2, BMI 27.92 INDEX, BP 126/80 MM HG, HR 99 /MIN, RR 16 /MIN, TEMP 97.3 F, OXYGEN SAT % 98%, SAFE IN ENV? (Y/N) YES, NA INITIALS SC 11:09, REVIEWED BY: KG. EXAMINATION GENERAL EXAMINATION: PATIENT IS ALERT O X 3 AND COOPERATIVE. HYPERPATHIA OVER THE SURGICAL SCAR IN THE CHEST AREA. 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 BARRIENTOS'S PAIN MANAGEMENT CASE. WE RECEIVED A PROVIDER TO PROVIDER AGREEMENT FROM DR. VANCE, SO I WILL GIVE THE PATIENT 110 TABLETS OF PERCOCET PER MONTH AND THE PATIENT WILL USE UP TO 4 TABLETS PER DAY NEEDED. THE PATIENT REPORTS UNDERSTANDING AND ALSO ACCEPT SHE WILL NOT USE MORE THAN THIS AMOUNT. ISTOP ___#[id number] WAS REVIEWED. THE PATIENT WILL SIGN A NARCOTIC AGREEMENT AND PERFORM A URINE TOXICOLOGY TODAY. AN OPIOID RISK ASSESSMENT WAS ALSO COMPLETED TODAY. THE PATIENT WAS TOLD TO BRING HER MEDICATION WITH HER IN THE ORIGINAL BOTTLE TO EVERY VISIT. I WILL ALSO START THE PATIENT ON VOLTAREN GEL. THE PATIENT MAY CONSIDER A SCAR NEUROMA INJECTION IN THE FUTURE. THE PATIENT WILL FOLLOW UP IN 1 MONTH. I WAS WITH THE PATIENTS FOR OVER 30 MINUTES AND MORE THAN HALF OF THE TIME WAS SPENT DISCUSSING MEDICATION MANAGEMENT. INSTRUCTIONS WERE GIVEN, QUESTIONS WERE ANSWERED, PATIENT REPORTS UNDERSTANDING AND AGREES WITH THE PLAN. I, MIGEL DIEZ, DOCUMENTED THE ABOVE INFORMATION ACTING A SCRIBE FOR DR. KONG. I HAVE REVIEWED THE ABOVE DOCUMENT, WRITTEN BY MIGEL RAMIREZ AND I VERIFY THAT IT IS ACCURATE. . OTHERS REFILL PERCOCET TABLET, 10-325 MG, 1 TABLET NEEDED, ORALLY FOR PAIN, EVERY 6 HRS MDD 4 MDD4, 30 DAYS, 110, REFILLS 0 START VOLTAREN GEL, 1 %, 1 STRIP, TRANSDERMAL NEEDED FOR PAIN, FOUR TIMES DAILY NEEDED, 30 DAYS, 1, REFILLS 1 PREVENTIVE MEDICINE PAIN CLINIC TEACHING: MEDICATIONS PRINTED INFORMATION ON VOLTAREN GEL GIVEN TO AND REVIEWED WITH PAT. AND SHE VERBALIZED UNDERSTANDING. AD. PROCEDURE CODES FA211 ESTABILISHED PATIENT [facility] CHARGE [id number] CURRENT MEDS W/DOSAGES DOCUMENTED G8730 PAIN ASSESS POS TOOL F/U PLAN DOC DISPOSITION & COMMUNICATION FOLLOW UP 4 WEEKS (REASON: CHEST AND THORACIC PAIN) ELECTRONICALLY SIGNED BY NALINI KONG MD, ON 08/04/2018 AT 05:58 PM EDT DISCLAIMER : THIS IS A VISIT SUMMARY EXTRACTED FROM THE [employer] CHART. IT IS NOT A COPY OF THE [employer] PROGRESS NOTE. TESSIE
== END ==
LOC: M PAIN 11:00
PROVIDERS: ATTEND Anesthesiology
DX: D36.10 Benign neoplasm of peripheral nerves and autonomic nervous system, unspecified (principal); M54.6 Pain in thoracic spine; G89.29 Other chronic pain; E21.3 Hyperparathyroidism, unspecified; G43.909 Migraine, unspecified, not intractable, without status migrainosus; G56.03 Carpal tunnel syndrome, bilateral upper limbs; G62.9 Polyneuropathy, unspecified; Z79.899 Other long term (current) drug therapy

== ENCOUNTER → 2018-07-26 | Outpatient (REF) | payer OTHER, MEDICAID ==
[2018-07-26 19:13] LABS: APPEARANCE, URINE CLEAR (CLEAR); BACTERIA, URINE AUTO NEGATIVE (NEGATIVE); BILIRUBIN, URINE AUTO NEGATIVE (NEGATIVE); BLOOD, URINE BLOOD NEGATIVE (NEGATIVE); COLOR, URINE YELLOW (YELLOW); GLUCOSE, URINE (UA) AUTO NEGATIVE (NEGATIVE); KETONE, URINE AUTO NEGATIVE (NEGATIVE); LEUKOCYTE ESTERASE, URINE AUTO NEGATIVE (NEGATIVE); MUCUS, URINE SMALL (NEGATIVE); NITRITE, URINE AUTO NEGATIVE (NEGATIVE); PROTEIN, URINE AUTO NEGATIVE (NEGATIVE); RBC, URINE AUTO 3 /HPF (0-3); SPECIFIC GRAVITY URINE AUTO 1.025 (1.002-1.035); SQUAMOUS EPITHELIAL CELL UR AU 2 /HPF (0-6); WBC, URINE AUTO 1 /HPF (0-3)
[2018-07-26 21:38] LABS: CHLAMYDIA DNA AMPLIFICATION NEGATIVE (NEGATIVE); GC DNA AMPLIFICATION NEGATIVE (NEGATIVE)
[2018-07-28 17:10] LABS: HPV HYBRID CAPTURE II Negative (Negative)
== END ==
LOC: M LAB REF 16:29
PROVIDERS: ATTEND Nurse Practitioner Family
DX: Z13.9 Encounter for screening, unspecified (principal)

== ENCOUNTER → 2018-08-10 | Outpatient (REF) | payer OTHER, MEDICAID ==
[2018-08-10 18:25] LABS: BASO # 0.1 10^3/uL (0.0-0.2); BASO % 0.8 % (0.0-1.0); EOS % 9.9 % (0.0-3.0); HEMATOCRIT 40.8 % (36.0-47.0); HEMOGLOBIN 13.5 g/dl (12.0-15.5); LYMPH # 2.5 10^3/uL (1.5-4.5); LYMPH % 25.5 % (24.0-44.0); MEAN CORPUSCULAR HEMOGLOBIN 30.8 pg (27.0-33.0); MEAN CORPUSCULAR HGB CONC 33.1 g/dl (32.0-36.5); MEAN CORPUSCULAR VOLUME 92.9 fl (80.0-96.0); MONO # 0.6 10^3/uL (0.0-0.8); NEUTROPHILS # 5.6 10^3/uL (1.8-7.7); NEUTROPHILS % 57.5 % (36.0-66.0); PLATELET COUNT, AUTOMATED 286 10^3/uL (150-450); RED BLOOD COUNT 4.39 10^6/uL (4.00-5.40); WHITE BLOOD COUNT 9.7 10^3/uL (4.0-10.0)
[2018-08-10 20:10] LABS: ERYTHROCYTE SEDIMENTATION RATE 27 mm/hr (0-20)
== END ==
LOC: M LAB REF 16:58
PROVIDERS: ATTEND Family Medicine Addiction Medicine
DX: M25.549 Pain in joints of unspecified hand (principal)

== ENCOUNTER → 2018-08-15 | Outpatient (CLI) | payer OTHER ==
--- NOTE | 2018-08-15 11:13 | REP ---
Bilateral hands: Right hand two views : There is no fracture or dislocation. Mineralization and joint spaces are normal. There are no calcifications or foreign bodies. Impression: Negative right hand. Left hand two views : There is no fracture or dislocation. Mineralization and joint spaces are normal. There are no calcifications or foreign bodies. Impression: Negative Left hand . Electronically Signed by Lavell Parra MD 08/15/2018 11:03 A
== END ==
LOC: M RAD 10:01
PROVIDERS: ATTEND Family Medicine Addiction Medicine
DX: M25.549 Pain in joints of unspecified hand (principal)

== ENCOUNTER → 2018-08-28 | Outpatient (CLI) | payer OTHER, MEDICAID ==
--- NOTE | 2018-09-06 00:37 | ECWPNPC ---
PATIENT NAME: REBEKAH BARRIENTOS : 1985 GENDER: FEMALE VISIT DATE: 08/28/2018 DISCHARGE DATE: 08/28/18 1600 VISIT LOCKED DATE TIME: PHYSICIAN: JAVIER DEWITT RESOURCE: JAVIER DEWITT REASON FOR APPOINTMENT 1. NEW BODY PART, R. SHOULDER NECK AND STERNUM PAIN HISTORY OF PRESENT ILLNESS HISTORY OF PRESENT ILLNESS: 33 YEAR OLD FEMALE PATIENT WITH A HISTORY OF CHRONIC THORACIC AND CHEST PAIN. THE PATIENT DESCRIBES THE PAIN STABBING, SHOOTING, AND CONTINUOUS WITH A PAIN SCORE OF 3/10. THE PATIENT IS CURRENTLY USING PERCOCET TO AID IN PAIN RELIEF AND FEELS THE MEDICATION IS WORKING WELL WITH NO SIDE EFFECTS. PAIN THE PATIENT DESCRIBES THE PAIN... THE PATIENT DESCRIBES THE PAIN... FALL RISK SCREENING: SCREENING :NO FALLS REPORTED IN THE LAST YEAR CURRENT MEDICATIONS TAKING PERCOCET 10-325 MG TABLET 1 TABLET NEEDED ORALLY FOR PAIN EVERY 6 HRS MDD 4 MDD4 TAKING VOLTAREN 1 % GEL 1 STRIP TRANSDERMAL NEEDED FOR PAIN FOUR TIMES DAILY NEEDED TAKING CALCIUM 600 MG TABLET 1 TABLET WITH MEALS ORALLY THREE TIMES DAILY TAKING VITAMIN D _ CAPSULE 69577 UNITS ORALLY WEEKLY TAKING REGLAN 10 MG TABLET 1 TAB ORALLY DAILY NEEDED TAKING MECLIZINE HCL 25 MG CAPSULE 1 CAP ORALLY NEEDED TAKING LASIX 20 MG TABLET 1 TABLET ORALLY ONCE A DAY NEEDED TAKING FLEXERIL 10 MGS 1 TAB ORAL BEFORE BEDTIME TAKING ZOLOFT 100 MG TABLET 2 TABLETS ORALLY ONCE A DAY TAKING MELOXICAM 7.5 MG TABLET 1 TABLET ORALLY BID TAKING SENNA-S 8.6-50 MG TABLET 2 TABLETS ORALLY ONCE A DAY TAKING COLACE 100 MG CAPSULE 1 CAPSULE NEEDED ORALLY ONCE A DAY TAKING MIRALAX - PACKET 1 PACKET MIXED WITH 8 OUNCES OF FLUID ORALLY ONCE A DAY NEEDED TAKING BOTOX 200 UNIT SOLUTION RECONSTITUTED DIRECTED INJECTION ONCE EVERY 3 MONTHS TAKING ATIVAN 1 1MG TABLET 1 TAB ORAL DAILY NEEDED NOT-TAKING HYDROXYZINE HCL 25 MG TABLET 1 TABLET NEEDED ORALLY EVERY 8 HRS NOT-TAKING PERCOCET 5-325 MG TABLET 1 TABLET NEEDED ORALLY EVERY 6 HRS NOT-TAKING GABAPENTIN 300 MG CAPSULE 1 CAPSULE ORALLY THREE TIMES A DAY MEDICATION LIST REVIEWED AND RECONCILED WITH THE PATIENT PAST MEDICAL HISTORY HYPERPARATHYROIDISM IBSC CHRONIC KIDNEY STONES CORONARY ARTERY DISEASE CHRONIC BACK ISSUES LESIONS ON BRAIN BEING WORKED UP BY NEUROLOGIST FOR MS CARPAL TUNNEL BILATERAL RAYNAUDS MIGRAINES AUTONOMIC NEUROPATHY NECK PAIN ALLERGIES N.K.D.A. SURGICAL HISTORY TONSILLECTOMY CESARENA SECTION 3X'S THYNEECTOMY PARATHROIDECTOMY MEDIALSTNASLSTERNOTOMY COROTID REPAIR WIRE REMOVAL FROM CHEST HERNIA REPAIR- FAMILY HISTORY FATHER: ALIVE, TWO TOTAL KNEES, GALL BLADDER REMOVED, DIAGNOSED WITH HYPERTENSION MOTHER: ALIVE 1 SON(S) , 2 DAUGHTER(S) . MOTHER HAS DDD,DYSTONIA, PAKINSONS,ENDOMETROSIS \NMATERNAL GRANDFATHER LUNG CA. CANCER RUNS IN FAMILY OF EVERYTHING NO CERTAIN KIND OF CANCER. SOCIAL HISTORY GENERAL: TOBACCO USE ARE YOU A:NONSMOKER EDUCATION LEVEL OF EDUCATION:NOT FINISHED COLLEGE DIET: REGULAR. LANGUAGE IRISH. DOMESTIC VIOLENCE DO YOU FEEL SAFE IN YOUR ENVIRONMENT?YES RECREATIONAL DRUG USE DRUG USE?NO EXERCISE: NONE. LEARNING BARRIERS / SPECIAL NEEDS BARRIERS TO LEARNING?NO HEARING IMPAIRED?NO VISION IMPAIRED?NO COGNITIVELY IMPAIRED?NO READINESS TO LEARN?YES LEARNING PREFERENCES?NO LEARNING CAPABILITIES PRESENT?YES EMOTIONAL BARRIERS?NO SPECIAL DEVICES?YES : NECK AND BILATERAL WRIST BRACES NEEDED SUPERVISOR WHIPPED TOPPING NEEDED?NO PAIN CLINIC PFS, CLERGY, PUBLIC HEALTH REFERRALS HAS THE PATIENT BEEN EDUCATED REGARDING HIS/HER PLAN OF CARE?YES HAS THE PATIENT BEEN EDUCATED REGARDING PAIN, THE RISK FOR PAIN, THE IMPORTANCE OF EFFECTIVE PAIN MANAGEMENT, AND THE PAIN ASSESSMENT PROCESS?YES LATEX QUESTIONNAIRE LATEX ALLERGY : HAVE YOU EVER DEVELOPED ANY TYPE OF REACTION AFTER HANDLING LATEX PRODUCTS SUCH RUBBER GLOVES, CONDOMS, DIAPHRAGMS, BALLOONS, SOCKS, OR UNDERWEAR?NO LATEX ALLERGY : HAVE YOU EVER DEVELOPED ANY TYPE OF REACTION DURING OR AFTER DENTAL APPOINTMENT, VAGINAL/RECTAL EXAMINATION, SURGICAL PROCEDURE, OR ANY OTHER EXPOSURE?NO LATEX RISK : HAVE YOU EVER HAD ANY DIFFICULTY BREATHING OR HIVES AFTER EATING OR HANDLING ANY FRUITS, OR VEGETABLES; SUCH KIWI, BANANAS, STONE FRUITS, OR CHESTNUTSNO LATEX RISK : DO YOU HAVE A PREVIOUS PERSONAL HISTORY OF MORE THAN NINE SURGERIES, SPINA BIFIDA, OR REPEATED CATHERTIZATIONS? NO LATEX RISK : ARE YOU FREQUENTLY EXPOSED TO LATEX PRODUCTS IN YOUR OCCUPATION?NO DATE ASKED : 08/28/2018 CAFFEINE CAFFEINE USE?YES HOW OFTEN AND HOW MUCH? 2 CUPS /DAY ADVANCE DIRECTIVE ADVANCE DIRECTIVE DISCUSSED WITH PATIENT:YES 08/28/18 PT DOES NOT HAVE ANY ADVANCED DIRECTIVES IN SHE DECLINES INFORMATION ON HCP AT THIS TIME. AD EVANGELICAL NO CHRISTIAN BELIEFS THAT WOULD IMPACT HEALTH CARE. MARITAL STATUS: SINGLE. 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 SEXUAL HX HAD SEX IN THE LAST 12 MONTHS (VAGINAL, ORAL, OR ANAL)?YES WITHMEN ONLY USE PROTECTION?NO HAVE YOU EVER HAD AN STD?NO HOSPITALIZATION/MAJOR DIAGNOSTIC PROCEDURE SURGERY RELATED REVIEW OF SYSTEMS REVIEWED BY: PROVIDER: JOHNNIE PARDO-Caity . CONSTITUTIONAL: ANY CHANGE IN YOUR MEDICAL CONDITION? YES, RECENT BLOOD WORK SHOWS ? OF AN AUTOIMMUNE DISORDER AND SHE HAS BEEN REFERRED TO A CHEMICAL PLANT MANAGER BUT HASN'T SEEN YET . CHILLS NO . FEVER NO . INFECTION: DO YOU HAVE NEW INFECTIONS? NO . DO YOU HAVE HISTORY OF MRSA? NO . MUSCULOSKELETAL: ANY NEW PATTERNS OF PAIN OR NUMBNESS? YES, NUMBNESS, TINGLING AND STIFFNESS IN BOTH HANDS ARE WORSE OVER APPROX THE PAST 6 WEEKS . GASTROENTEROLOGY: ANY NEW CHANGE IN BOWEL CONTROL? NO . GENITOURINARY: ANY NEW CHANGE IN BLADDER CONTROL? NO . IS THERE A CHANCE YOU COULD BE ? NO . HEMATOLOGY/LYMPH: DO YOU TAKE ANY BLOOD THINNERS? (FOR EXAMPLE- COUMADIN, PLAVIX, AGGRENOX, PLATEL, PRADAXA, OR XARELTO) NO . WHEN WAS YOUR LAST DOSE? DATE: TIME: . NEUROLOGY: HAVE YOU FALLEN IN THE PAST 12 MONTHS? NO . ANY NEW EXTREMITY NUMBNESS OR WEAKNESS? NO . CARDIOLOGY: DO YOU HAVE A PACEMAKER OR DEFIBRILLATOR? NO . RESPIRATORY: HAVE YOU BEEN SICK IN THE PAST WEEK? NO . FEVER NO . FLU LIKE SYMPTOMS? NO . COUGH NO . INTEGUMENTARY: DO YOU HAVE ANY RASHES OR OPEN SORES? NO . ALLERGIC/IMMUNO: ARE YOU ALLERGIC TO IV DYE? NO . ANY NEW ALLERGIES? NO . PSYCHIATRIC: DO YOU HAVE THOUGHTS OF HURTING YOURSELF OR SOMEONE ELSE? NO . ARE YOU ABUSED, NEGLECTED, OR IN AN UNSAFE ENVIRONMENT? NO . ENDOCRINOLOGY: ARE YOU DIABETIC? NO . OTHER: DO YOU NEED ANY PRESCRIPTIONS? YES . IF YES, PLEASE LIST: PERCOCET, FLEXERIL AND MELOXICAM . ANY NEW PROBLEMS WITH YOUR MEDICATIONS? NO . WHEN DID YOU LAST EAT? ____ . WHEN DID YOU LAST DRINK? ____ . WHAT DID YOU LAST DRINK? ____ . NAME OF PERSON DRIVING YOU HOME? ____ . DO YOU HAVE ANY OTHER QUESTIONS OR CONCERNS NO . VITAL SIGNS WT 142 LBS, HT 5'2, BMI 27.73 INDEX, BP 136/86 MM HG, HR 91 /MIN, RR 16 /MIN, TEMP 97.6 F, OXYGEN SAT % 96%, SAFE IN ENV? (Y/N) Y, NA INITIALS AW 1506, REVIEWED BY: KEN. EXAMINATION GENERAL EXAMINATION: GENERALNO ACUTE DISTRESS, WELL NOURISHED AND HYDRATED. PSYCHAPPROPRIATE MOOD AND AFFECT . NECK:POINT TENDER AT TRIGGER POINT ALONG BASE OF RIGHT SIDE OF NECK. NO ERYTHEMA, INCREASED WARMTH, OR SKIN ERUPTIONS NOTED.. LUNGS:CLEAR TO AUSCULTATION BILATERALLY, NO WHEEZES, RHONCHI, RALES. HEART:NO MURMURS, REGULAR RATE AND RHYTHM. ASSESSMENTS MYALGIA, OTHER SITE - M79.18 (PRIMARY) TREATMENT MYALGIA, OTHER SITE CLINICAL NOTES: 33 YEAR OLD FEMALE IN FOR FOLLOW UP CHRONIC PAIN. WHEN ASKED SHE FEELS THE MEDICATIONS ARE WORKING WELL. SHE DID HAVE COMPLAINTS OF NEW ONSET PAIN IN HER ARMS WHICH SHE WAS ENCOURAGED TO DISCUSS WITH HER PCP. GIVEN PRESENTING SYMPTOMS AND RESULTS OF PHYSICAL EXAMINATION RECOMMENDED CONTINUATION OF CURRENT MEDICATION REGIMEN WITH FOLLOW UP IN 3 MONTHS. DISCUSSED TPI WITH PATIENT AND SHE WAS GIVEN INFORMATION REGARDING PROCEDURE. SHE WAS INSTRUCTED TO CALL THE OFFICE SHOULD SHE WISH TO PROCEED WITH A TPI. PATIENT HAS EXPRESSED UNDERSTANDING OF AND WAS IN AGREEMENT WITH TX PLAN. GIVEN TIME TO ASK QUESTIONS AND EXPRESS CONCERNS., ISTOP REGISTRY REVIEWED AND DEMONSTRATES COMPLLIANCE. BRINGS IN MEDICATIONS WHICH IS APPROPRIATE FOR WHAT WAS DISPENSED. RECENT URINE TOXICOLOGY REVIEWED. NO UNAUTHORIZED MEDICATIONS. NO ILLICIT SUBSTANCES AND PRESCRIBED MEDICATIONS WERE PRESENT. RISKS AND BENEFITS OF NARCOTIC/OPIOD MEDICATIONS WERE REVIEWED WITH PATIENT - THIS INCLUDES BUT IS NOT LIMITED TO RISK OF DEPENDANCE/DEVELOPMENT OF ADDICTION, MOOD DISTURBANCE AND DEPRESSION, OSTEOPOROSIS, HORMONAL AND LABIDAL CHANGES, RESPIRATORY DEPRESSION AND . PATIENT IS ADVISED NOT TO DRIVE OR DRINK ALCOHOL WHILE ON THESE MEDICATIONS, . OTHERS REFILL PERCOCET TABLET, 10-325 MG, 1 TABLET NEEDED, ORALLY FOR PAIN, EVERY 6 HRS MDD 4 MDD4, 30 DAYS, 110, REFILLS 0 REFILL FLEXERIL, 10 MGS 1 TAB, ORAL, BEFORE BEDTIME, 30 DAYS, 30 REFILL MELOXICAM TABLET, 7.5 MG, 1, ORALLY, BID, 30 DAYS, 60 NOTES: OPTIONS: TRIGGER POINT INJECTION MATERIAL WAS PRINTED. PREVENTIVE MEDICINE PAIN CLINIC TEACHING: PROCEDURE TEACHING PRINTED INFORMATION ON TRIGGER POINT INJECTIONS GIVEN TO AND REVIEWED WITH PT. SHE IS GOING TO REVIEW THE LITERATURE AND DECIDE IF THIS IS A TREATMENT THAT SHE WOULD LIKE. IF SHE DECIDES SHE WOULD LIKE TO TRY THE INJECTIONS SHE WILL CONTACT US. AD. PROCEDURE CODES FA211 ESTABILISHED PATIENT [facility] CHARGE DISPOSITION & COMMUNICATION FOLLOW UP 3 MONTHS (REASON: CHRONIC PAIN FOLLOW UP ) ELECTRONICALLY SIGNED BY CHAR MILLER ON 09/05/2018 AT 04:33 PM EDT DISCLAIMER : THIS IS A VISIT SUMMARY EXTRACTED FROM THE [employer] CHART. IT IS NOT A COPY OF THE [employer] PROGRESS NOTE. TESSIE
== END ==
LOC: M PAIN 15:15
PROVIDERS: ATTEND Family Medicine
DX: M79.18 Myalgia, other site (principal); N18.9 Chronic kidney disease, unspecified; I25.10 Atherosclerotic heart disease of native coronary artery without angina pectoris; K58.1 Irritable bowel syndrome with constipation; I73.00 Raynaud's syndrome without gangrene; G43.909 Migraine, unspecified, not intractable, without status migrainosus; G56.03 Carpal tunnel syndrome, bilateral upper limbs; G90.9 Disorder of the autonomic nervous system, unspecified; M54.6 Pain in thoracic spine; Z79.891 Long term (current) use of opiate analgesic; Z79.899 Other long term (current) drug therapy

== ENCOUNTER → 2018-09-20 | Outpatient (REF) | payer OTHER, MEDICAID ==
[2018-09-20 15:56] LABS: CALCIUM LEVEL 9.2 MG/DL (8.5-10.1); PHOSPHORUS LEVEL 3.7 MG/DL (2.5-4.9)
[2018-09-20 19:42] LABS: TOTAL 25(OH) VITAMIN D 18.7 NG/ML (30.0-100.0)
== END ==
LOC: M LABDRAW1 14:34
PROVIDERS: ATTEND Nurse Practitioner Family
DX: E21.3 Hyperparathyroidism, unspecified (principal); E55.9 Vitamin D deficiency, unspecified

== ENCOUNTER → 2018-11-08 | Outpatient (REF) | payer OTHER, MEDICAID ==
[2018-11-08 16:08] LABS: APPEARANCE, URINE CLEAR (CLEAR); BACTERIA, URINE AUTO NEGATIVE (NEGATIVE); BILIRUBIN, URINE AUTO NEGATIVE (NEGATIVE); BLOOD, URINE BLOOD NEGATIVE (NEGATIVE); COLOR, URINE STRAW (YELLOW); GLUCOSE, URINE (UA) AUTO NEGATIVE (NEGATIVE); KETONE, URINE AUTO NEGATIVE (NEGATIVE); LEUKOCYTE ESTERASE, URINE AUTO NEGATIVE (NEGATIVE); MUCUS, URINE SMALL (NEGATIVE); NITRITE, URINE AUTO NEGATIVE (NEGATIVE); PROTEIN, URINE AUTO NEGATIVE (NEGATIVE); RBC, URINE AUTO 0 /HPF (0-3); SPECIFIC GRAVITY URINE AUTO 1.008 (1.002-1.035); SQUAMOUS EPITHELIAL CELL UR AU 0 /HPF (0-6); UROBILINOGEN, URINE AUTO 0.2 mg/dL (0.0-2.0); WBC, URINE AUTO 0 /HPF (0-3)
[2018-11-08 16:19] LABS: CREATININE,RANDOM URINE 42.4 MG/DL; TOTAL PROTEIN,RANDOM URINE 6.8 MG/DL (0.0-12.0)
[2018-11-08 16:32] LABS: C REACTIVE PROTEIN QUANTITATIV < 0.30 MG/DL (0.00-0.30); COMPLEMENT C3 108 MG/DL (90-180); COMPLEMENT C4 40 MG/DL (10-40); CPK CREATINE PHOSPHOKINASE 159 U/L (26-192); IMMUNOGLOBULIN A 91.3 MG/DL (70-400); IMMUNOGLOBULIN G 760 MG/DL (681-1648)
[2018-11-13 10:58] LABS: DRVV SCREEN 40.4 SEC
[2018-11-15 00:07] LABS: ANA (HEP2) Negative (.); ANTI DS-DNA AB <1:10 titer (.); ANTI THROMBIN 3 FUNCT ACTIVITY 134 % (75-135); BETA-2 GLYCOPROTEIN I ABY IGA <9 (0-25); BETA-2 GLYCOPROTEIN I ABY IGG <9 (0-20); BETA-2 GLYCOPROTEIN I ABY IGM <9 (0-32); CARDIOLIPIN IGA ANTIBODY <9 APL U/mL (0-11); CARDIOLIPIN IGG ANTIBODY <9 GPL U/mL (0-14); CARDIOLIPIN IGM ANTIBODY 10 MPL U/mL (0-12); PROTEIN C FUNCTIONAL ACTIVITY 160 % (73-180); PROTEIN S FUNCTIONAL ACTIVITY 95 % (63-140); RNP ANTIBODY < 0.2 AI (0.0-0.9); SMITHS ANTIBODY < 0.2 AI (0.0-0.9); SSA SJOGRENS A <0.2 AI (0.0-0.9); SSB SJOGRENS B <0.2 AI (0.0-0.9)
== END ==
LOC: M LABDRAW1 14:18
PROVIDERS: ATTEND Internal Medicine Rheumatology
DX: N96 Recurrent pregnancy loss (principal); M25.50 Pain in unspecified joint

== ENCOUNTER → 2018-11-28 | Outpatient (CLI) | payer OTHER, MEDICAID ==
[~2018-11-28] MED LIST changes: -TRAZ-163 PO; +TRAZ-257 PO
--- NOTE | 2018-11-30 00:47 | ECWPNPC ---
PATIENT NAME: REBEKAH BARRIENTOS : 1985 GENDER: FEMALE VISIT DATE: 11/28/2018 DISCHARGE DATE: 11/28/18 1151 VISIT LOCKED DATE TIME: PHYSICIAN: JAVIER DEWITT RESOURCE: JAVIER DEWITT REASON FOR APPOINTMENT 1. R SHOULDER, NECK & STERNUM PAIN HISTORY OF PRESENT ILLNESS HISTORY OF PRESENT ILLNESS: PAIN THE PATIENT DESCRIBES THE PAIN... 33-YEAR-OLD FEMALE IN FOR CHRONIC PAIN FOLLOW-UP. SHE RATES HER PAIN AT A 3 OUT OF 10 CURRENTLY AND DESCRIBES IT ACHING, SHARP, STABBING, SQUEEZING AND THROBBING. SHE FEELS THE MEDICATIONS ARE WORKING WELL AND DENIES MED SIDE EFFECTS THIS TIME. FALL RISK SCREENING: SCREENING :NO FALLS REPORTED IN THE LAST YEAR CURRENT MEDICATIONS TAKING VOLTAREN 1 % GEL 1 STRIP TRANSDERMAL NEEDED FOR PAIN FOUR TIMES DAILY NEEDED TAKING CALCIUM 600 MG TABLET 1 TABLET WITH MEALS ORALLY ONCE DAILY TAKING VITAMIN D _ CAPSULE 87127 UNITS ORALLY WEEKLY TAKING REGLAN 10 MG TABLET 1 TAB ORALLY DAILY NEEDED TAKING MECLIZINE HCL 25 MG CAPSULE 1 CAP ORALLY NEEDED TAKING LASIX 20 MG TABLET 1 TABLET ORALLY ONCE A DAY NEEDED TAKING ZOLOFT 100 MG TABLET 2 TABLETS ORALLY BEFORE BEDTIME TAKING SENNA-S 8.6-50 MG TABLET 2 TABLETS ORALLY ONCE A DAY TAKING COLACE 100 MG CAPSULE 1 CAPSULE NEEDED ORALLY ONCE A DAY TAKING MIRALAX - PACKET 1 PACKET MIXED WITH 8 OUNCES OF FLUID ORALLY ONCE A DAY NEEDED TAKING BOTOX 200 UNIT SOLUTION RECONSTITUTED DIRECTED INJECTION ONCE EVERY 3 MONTHS TAKING ATIVAN 1 1MG TABLET 1 TAB ORAL DAILY NEEDED TAKING MELOXICAM 7.5 MG TABLET 1 ORALLY BID TAKING CYCLOBENZAPRINE HCL 10 MG TABLET 1 TAB ORALLY QHS TAKING PERCOCET 10-325 MG TABLET 1 TABLET NEEDED ORALLY FOR PAIN EVERY 6 HRS MDD 4 MDD4 DISCONTINUED FLEXERIL 10 MGS 1 TAB ORAL BEFORE BEDTIME, NOTES: DUPLICATE MEDICATION LIST REVIEWED AND RECONCILED WITH THE PATIENT PAST MEDICAL HISTORY HYPERPARATHYROIDISM IBSC CHRONIC KIDNEY STONES CORONARY ARTERY DISEASE CHRONIC BACK ISSUES LESIONS ON BRAIN BEING WORKED UP BY NEUROLOGIST FOR MS CARPAL TUNNEL BILATERAL RAYNAUDS MIGRAINES AUTONOMIC NEUROPATHY NECK PAIN DEVIATED RIGHT AXIS THORACIC PAIN SCAR NEUROMA MYALGIA ALLERGIES N.K.D.A. SURGICAL HISTORY TONSILLECTOMY CESAREN SECTION 3X'S THYMECTOMY PARATHROIDECTOMY MEDIALSTNASLSTERNOTOMY COROTID REPAIR WIRE REMOVAL FROM CHEST HERNIA REPAIR- FAMILY HISTORY FATHER: ALIVE, TWO TOTAL KNEES, GALL BLADDER REMOVED, DIAGNOSED WITH HYPERTENSION MOTHER: ALIVE PATERNAL GRAND FATHER: STOMACH CANCER MATERNAL GRAND FATHER: LUNG CANCER MATERNAL GRAND MOTHER: CANCER, THROAT EMPHYSEMA 1 SON(S) , 2 DAUGHTER(S) . MOTHER HAS DDD,DYSTONIA, PAKINSONS,ENDOMETROSIS \NMATERNAL GRANDFATHER LUNG CA. CANCER RUNS IN FAMILY OF EVERYTHING NO CERTAIN KIND OF CANCER. SOCIAL HISTORY GENERAL: TOBACCO USE ARE YOU A:NONSMOKER EDUCATION LEVEL OF EDUCATION:NOT FINISHED COLLEGE DIET: REGULAR. LANGUAGE CZECH. DOMESTIC VIOLENCE DO YOU FEEL SAFE IN YOUR ENVIRONMENT?YES RECREATIONAL DRUG USE DRUG USE?NO EXERCISE: NONE. LEARNING BARRIERS / SPECIAL NEEDS BARRIERS TO LEARNING?NO HEARING IMPAIRED?NO VISION IMPAIRED?NO COGNITIVELY IMPAIRED?NO READINESS TO LEARN?YES LEARNING PREFERENCES?NO LEARNING CAPABILITIES PRESENT?YES EMOTIONAL BARRIERS?NO SPECIAL DEVICES?YES : NECK AND BILATERAL WRIST BRACES NEEDED SUPERVISOR PROCESS TESTING NEEDED?NO PAIN CLINIC PFS, CLERGY, PUBLIC HEALTH REFERRALS HAS THE PATIENT BEEN EDUCATED REGARDING HIS/HER PLAN OF CARE?YES HAS THE PATIENT BEEN EDUCATED REGARDING PAIN, THE RISK FOR PAIN, THE IMPORTANCE OF EFFECTIVE PAIN MANAGEMENT, AND THE PAIN ASSESSMENT PROCESS?YES LATEX QUESTIONNAIRE LATEX ALLERGY : HAVE YOU EVER DEVELOPED ANY TYPE OF REACTION AFTER HANDLING LATEX PRODUCTS SUCH RUBBER GLOVES, CONDOMS, DIAPHRAGMS, BALLOONS, SOCKS, OR UNDERWEAR?NO LATEX ALLERGY : HAVE YOU EVER DEVELOPED ANY TYPE OF REACTION DURING OR AFTER DENTAL APPOINTMENT, VAGINAL/RECTAL EXAMINATION, SURGICAL PROCEDURE, OR ANY OTHER EXPOSURE?NO LATEX RISK : HAVE YOU EVER HAD ANY DIFFICULTY BREATHING OR HIVES AFTER EATING OR HANDLING ANY FRUITS, OR VEGETABLES; SUCH KIWI, BANANAS, STONE FRUITS, OR CHESTNUTSNO LATEX RISK : DO YOU HAVE A PREVIOUS PERSONAL HISTORY OF MORE THAN NINE SURGERIES, SPINA BIFIDA, OR REPEATED CATHERIZATIONS? YES - PLEASE INDICATE : > 9 SURGERIES LATEX RISK : ARE YOU FREQUENTLY EXPOSED TO LATEX PRODUCTS IN YOUR OCCUPATION?NO DATE ASKED : 11/28/2018 CAFFEINE CAFFEINE USE?YES HOW OFTEN AND HOW MUCH? 1 CUP /DAY ADVANCE DIRECTIVE ADVANCE DIRECTIVE DISCUSSED WITH PATIENT:YES 11/28/18 PT DOES NOT HAVE ANY ADVANCED DIRECTIVES IN SHE DECLINES INFORMATION ON HCP AT THIS TIME. AD ROMAN CATHOLIC NO MANDAEN BELIEFS THAT WOULD IMPACT HEALTH CARE. MARITAL STATUS: SINGLE. ALCOHOL SCREENING DID YOU HAVE A DRINK CONTAINING ALCOHOL IN THE PAST YEAR?NO POINTS0 INTERPRETATIONNEGATIVE OCCUPATION: [employer],DISABLED. SEXUAL HX HAD SEX IN THE LAST 12 MONTHS (VAGINAL, ORAL, OR ANAL)?YES WITHMEN ONLY USE PROTECTION?NO HAVE YOU EVER HAD AN STD?NO HOSPITALIZATION/MAJOR DIAGNOSTIC PROCEDURE SURGERY RELATED REVIEW OF SYSTEMS REVIEWED BY: PROVIDER: JOHNNIE PARDO-Caity . CONSTITUTIONAL: ANY CHANGE IN YOUR MEDICAL CONDITION? NO . CHILLS NO . FEVER NO . INFECTION: DO YOU HAVE NEW INFECTIONS? NO . DO YOU HAVE HISTORY OF MRSA? NO . MUSCULOSKELETAL: ANY NEW PATTERNS OF PAIN OR NUMBNESS? NO . GASTROENTEROLOGY: ANY NEW CHANGE IN BOWEL CONTROL? NO . GENITOURINARY: ANY NEW CHANGE IN BLADDER CONTROL? NO . IS THERE A CHANCE YOU COULD BE ? NO . HEMATOLOGY/LYMPH: DO YOU TAKE ANY BLOOD THINNERS? (FOR EXAMPLE- COUMADIN, PLAVIX, AGGRENOX, PLATEL, PRADAXA, OR XARELTO) NO . WHEN WAS YOUR LAST DOSE? DATE: TIME: . NEUROLOGY: HAVE YOU FALLEN IN THE PAST 12 MONTHS? NO . ANY NEW EXTREMITY NUMBNESS OR WEAKNESS? NO . CARDIOLOGY: DO YOU HAVE A PACEMAKER OR DEFIBRILLATOR? NO . RESPIRATORY: HAVE YOU BEEN SICK IN THE PAST WEEK? NO . FEVER NO . FLU LIKE SYMPTOMS? NO . COUGH NO . INTEGUMENTARY: DO YOU HAVE ANY RASHES OR OPEN SORES? NO . ALLERGIC/IMMUNO: ARE YOU ALLERGIC TO IV DYE? NO . ANY NEW ALLERGIES? NO . PSYCHIATRIC: DO YOU HAVE THOUGHTS OF HURTING YOURSELF OR SOMEONE ELSE? NO . ARE YOU ABUSED, NEGLECTED, OR IN AN UNSAFE ENVIRONMENT? NO . ENDOCRINOLOGY: ARE YOU DIABETIC? NO . OTHER: DO YOU NEED ANY PRESCRIPTIONS? NO . IF YES, PLEASE LIST: ____ . ANY NEW PROBLEMS WITH YOUR MEDICATIONS? NO . WHEN DID YOU LAST EAT? ____ . WHEN DID YOU LAST DRINK? ____ . WHAT DID YOU LAST DRINK? ____ . NAME OF PERSON DRIVING YOU HOME? ____ . DO YOU HAVE ANY OTHER QUESTIONS OR CONCERNS NO . VITAL SIGNS WT 143.8 LBS, HT 62 IN, BMI 26.30 INDEX, BP 135/95 MM HG, REPEAT BP 110/78 MANUAL, HR 117 /MIN, RR 18 /MIN, TEMP 97.9 F, OXYGEN SAT % 96%, SAFE IN ENV? (Y/N) Y, NA INITIALS ND 11:17, REVIEWED BY: KEN. EXAMINATION GENERAL EXAMINATION: GENERALNO ACUTE DISTRESS, WELL NOURISHED AND HYDRATED. PSYCHAPPROPRIATE MOOD AND AFFECT . LUNGS:CLEAR TO AUSCULTATION BILATERALLY, NO WHEEZES, RHONCHI, RALES. HEART:NO MURMURS, REGULAR RATE AND RHYTHM. ASSESSMENTS CERVICALGIA - M54.2 (PRIMARY) TREATMENT CERVICALGIA CLINICAL NOTES: 33-YEAR-OLD FEMALE IN FOR CHRONIC PAIN FOLLOW-UP. GIVEN PRESENTING SYMPTOMS AND RESULTS OF PHYSICAL EXAMINATION RECOMMENDED CONTINUATION OF CURRENT MEDICATION REGIMEN WITH FOLLOW-UP IN 3 MONTHS. PATIENT HAS EXPRESSED UNDERSTANDING OF AND WAS IN AGREEMENT WITH TREATMENT PLAN. GIVEN TIME TO ASK QUESTIONS AND EXPRESS CONCERNS., ISTOP REGISTRY REVIEWED AND DEMONSTRATES COMPLLIANCE. (REF # [id number] ) BRINGS IN MEDICATIONS WHICH IS APPROPRIATE FOR WHAT WAS DISPENSED. RECENT URINE TOXICOLOGY REVIEWED. NO UNAUTHORIZED MEDICATIONS. NO ILLICIT SUBSTANCES AND PRESCRIBED MEDICATIONS WERE PRESENT. DISPOSITION & COMMUNICATION FOLLOW UP 3 MONTHS (REASON: CHRONIC PAIN ) ELECTRONICALLY SIGNED BY CHAR MILLER ON 11/29/2018 AT 09:13 AM EDT DISCLAIMER : THIS IS A VISIT SUMMARY EXTRACTED FROM THE [employer] CHART. IT IS NOT A COPY OF THE [employer] PROGRESS NOTE. TESSIE
== END ==
LOC: M PAIN 11:00
PROVIDERS: ATTEND Family Medicine
DX: M54.2 Cervicalgia (principal); G89.29 Other chronic pain; G43.909 Migraine, unspecified, not intractable, without status migrainosus; M79.18 Myalgia, other site; Z79.899 Other long term (current) drug therapy

== ENCOUNTER → 2019-01-01 | Outpatient (CLI) | payer OTHER ==
[~2019-01-01] MED LIST changes: +TRAZ-163 PO; -TRAZ-257 PO
--- NOTE | 2019-01-01 15:03 | REP ---
Gastric emptying nuclear scintigraphy: History: Nausea and vomiting Technique: 1.1 mCi of technetium-99m sulfur colloid was ingested in two scrambled eggs and 6 ounces of water and sequential anterior and posterior images are acquired for an 89-minute imaging observation period. Regions of interest are drawn around the stomach to plot gastric emptying. Scintigraphic findings: Expected T1/2 is 90 minutes. 38 % emptying is observed in this patient during the 89-minute imaging observation period, for a calculated T1/2 in this patient of 121 minutes. Impression: Mildly delayed gastric emptying. Electronically Signed by Bentley Nascimento MD 01/01/2019 02:54 P
== END ==
LOC: M RAD 12:30
PROVIDERS: ATTEND Nurse Practitioner Family
DX: K30 Functional dyspepsia (principal); R11.2 Nausea with vomiting, unspecified
CPT/HCPCS: 78264; A9541

== ENCOUNTER → 2019-01-15 | Outpatient (REF) | payer OTHER ==
[2019-01-15 18:45] LABS: CALCIUM LEVEL 8.7 MG/DL (8.5-10.1); PHOSPHORUS LEVEL 3.4 MG/DL (2.5-4.9)
[2019-01-15 18:53] LABS: TOTAL 25(OH) VITAMIN D 18.8 NG/ML (30.0-100.0)
== END ==
LOC: M LABNEURO 12:46
PROVIDERS: ATTEND Internal Medicine Endocrinology, Diabetes & Metabolism
DX: E21.3 Hyperparathyroidism, unspecified (principal); E55.9 Vitamin D deficiency, unspecified

== ENCOUNTER → 2019-02-28 | Outpatient (REF) | payer OTHER, MEDICAID | LOC: M LAB REF 18:25 | PROVIDERS: ATTEND Dermatology | DX: D22.5 Melanocytic nevi of trunk (principal); D22.39 Melanocytic nevi of other parts of face ==

== ENCOUNTER → 2019-04-15 | Outpatient (REF) | payer OTHER, MEDICAID ==
[~2019-04-15] MED LIST changes: -TRAZ-163 PO; +TRAZ-257 PO
[2019-04-15 16:53] LABS: IONIZED CALCIUM 4.5 MG/DL (4.5-5.3)
[2019-04-15 17:25] LABS: CALCIUM LEVEL 8.7 MG/DL (8.5-10.1); PHOSPHORUS LEVEL 3.7 MG/DL (2.5-4.9)
== END ==
LOC: M LABNEURO 15:08
PROVIDERS: ATTEND Internal Medicine Endocrinology, Diabetes & Metabolism
DX: E21.3 Hyperparathyroidism, unspecified (principal); E55.9 Vitamin D deficiency, unspecified

== ENCOUNTER → 2019-04-23 | Outpatient (REF) | payer OTHER, MEDICAID ==
[2019-04-23 17:49] LABS: BASO # 0.1 10^3/uL (0.0-0.2); BASO % 0.8 % (0.0-1.0); EOS # 0.4 10^3/uL (0.0-0.5); EOS % 3.5 % (0.0-3.0); HEMATOCRIT 43.3 % (36.0-47.0); HEMOGLOBIN 14.3 g/dl (12.0-15.5); LYMPH # 2.5 10^3/uL (1.5-5.0); LYMPH % 24.4 % (24.0-44.0); MEAN CORPUSCULAR HEMOGLOBIN 30.7 pg (27.0-33.0); MEAN CORPUSCULAR VOLUME 92.9 fl (80.0-96.0); MONO # 0.8 10^3/uL (0.0-0.8); MONO % 7.7 % (0.0-5.0); NEUTROPHILS # 6.5 10^3/uL (1.5-8.5); NEUTROPHILS % 63.2 % (36.0-66.0); PLATELET COUNT, AUTOMATED 349 10^3/uL (150-450); RED BLOOD COUNT 4.66 10^6/uL (4.00-5.40); WHITE BLOOD COUNT 10.3 10^3/uL (4.0-10.0)
[2019-04-23 18:10] LABS: HEMOGLOBIN A1c 5.1 %
[2019-04-23 18:58] LABS: ALBUMIN 4.1 GM/DL (3.2-5.2); ALT/SGPT 15 U/L (12-78); BILIRUBIN,TOTAL 0.2 MG/DL (0.2-1.0); BLOOD UREA NITROGEN 10 MG/DL (7-18); CALCIUM LEVEL 8.4 MG/DL (8.5-10.1); CARBON DIOXIDE LEVEL 28 MEQ/L (21-32); CHLORIDE LEVEL 105 MEQ/L (98-107); CHOLESTEROL LEVEL 260 MG/DL (<200); CHOLESTEROL RISK RATIO 7.647 (<5); CREATININE FOR GFR 0.85 MG/DL (0.55-1.30); GLOMERULAR FILTRATION RATE > 60.0 (>60); GLUCOSE, FASTING 90 MG/DL (70-100); HDL CHOLESTEROL 34 MG/DL (>40); LDL CHOLESTEROL 155 MG/DL (<100); NON-HDL-C 226 MG/DL; POTASSIUM SERUM 4.3 MEQ/L (3.5-5.1); SODIUM LEVEL 140 MEQ/L (136-145); TOTAL PROTEIN 7.6 GM/DL (6.4-8.2); TRIGLYCERIDES LEVEL 356 MG/DL (<150)
[2019-04-23 19:03] LABS: FOLATE 20.3 NG/ML; TOTAL 25(OH) VITAMIN D 25.4 NG/ML (30.0-100.0); VITAMIN B12 LEVEL 525 PG/ML
== END ==
LOC: M LAB REF 16:44
PROVIDERS: ATTEND Nurse Practitioner Family
DX: Z13.9 Encounter for screening, unspecified (principal); R11.2 Nausea with vomiting, unspecified; R52 Pain, unspecified; E21.3 Hyperparathyroidism, unspecified

== ENCOUNTER → 2019-11-28 | Outpatient (REF) | payer OTHER, MEDICAID ==
[~2019-11-28] MED LIST changes: +CYCL-707 PO; -CYCL10TA PO
[2019-11-28 13:12] LABS: BASO # 0.1 10^3/uL (0.0-0.2); BASO % 0.9 % (0.0-1.0); EOS # 0.3 10^3/uL (0.0-0.5); EOS % 3.3 % (0.0-3.0); HEMATOCRIT 43.3 % (36.0-47.0); HEMOGLOBIN 14.3 g/dl (12.0-15.5); LYMPH # 2.9 10^3/uL (1.5-5.0); LYMPH % 28.2 % (24.0-44.0); MONO # 0.8 10^3/uL (0.0-0.8); MONO % 7.5 % (0.0-5.0); NEUTROPHILS # 6.2 10^3/uL (1.5-8.5); NEUTROPHILS % 59.7 % (36.0-66.0); PLATELET COUNT, AUTOMATED 342 10^3/uL (150-450); RED BLOOD COUNT 4.76 10^6/uL (4.00-5.40); WHITE BLOOD COUNT 10.3 10^3/uL (4.0-10.0)
[2019-11-28 13:51] LABS: ALBUMIN 4.1 GM/DL (3.2-5.2); ALT/SGPT 24 U/L (12-78); BILIRUBIN,TOTAL 0.2 MG/DL (0.2-1.0); BLOOD UREA NITROGEN 10 MG/DL (7-18); CALCIUM LEVEL 8.9 MG/DL (8.5-10.1); CARBON DIOXIDE LEVEL 27 MEQ/L (21-32); CHLORIDE LEVEL 107 MEQ/L (98-107); CHOLESTEROL LEVEL 298 MG/DL (<200); CHOLESTEROL RISK RATIO 8.514 (<5); CREATININE FOR GFR 0.86 MG/DL (0.55-1.30); FREE T4 0.82 NG/DL (0.76-1.46); GLOMERULAR FILTRATION RATE > 60.0 (>60); GLUCOSE, FASTING 87 MG/DL (70-100); HDL CHOLESTEROL 35 MG/DL (>40); LDL CHOLESTEROL 194 MG/DL (<100); NON-HDL-C 263 MG/DL; POTASSIUM SERUM 4.7 MEQ/L (3.5-5.1); SODIUM LEVEL 139 MEQ/L (136-145); TOTAL PROTEIN 7.3 GM/DL (6.4-8.2); TRIGLYCERIDES LEVEL 344 MG/DL (<150)
== END ==
LOC: M LAB REF 12:13
PROVIDERS: ATTEND Nurse Practitioner Family
DX: E78.5 Hyperlipidemia, unspecified (principal); R23.2 Flushing; R53.83 Other fatigue; Z13.9 Encounter for screening, unspecified; E21.3 Hyperparathyroidism, unspecified

== ENCOUNTER → 2020-03-11 | Outpatient (REF) | payer OTHER, MEDICAID ==
[~2020-03-11] MED LIST changes: +GABA-282 PO; -GABA-843 PO
[2020-03-11 17:35] LABS: BASO # 0.1 10^3/uL (0.0-0.2); BASO % 0.8 % (0.0-1.0); EOS # 0.4 10^3/uL (0.0-0.5); EOS % 4.1 % (0.0-3.0); HEMOGLOBIN 13.4 g/dl (12.0-15.5); LYMPH # 2.2 10^3/uL (1.5-5.0); MEAN CORPUSCULAR HEMOGLOBIN 29.7 pg (27.0-33.0); MEAN CORPUSCULAR HGB CONC 32.7 g/dl (32.0-36.5); MEAN CORPUSCULAR VOLUME 90.9 fl (80.0-96.0); MONO # 0.7 10^3/uL (0.0-0.8); MONO % 7.2 % (0.0-5.0); NEUTROPHILS # 6.2 10^3/uL (1.5-8.5); NEUTROPHILS % 64.5 % (36.0-66.0); PLATELET COUNT, AUTOMATED 350 10^3/uL (150-450); RED BLOOD COUNT 4.51 10^6/uL (4.00-5.40); WHITE BLOOD COUNT 9.7 10^3/uL (4.0-10.0)
[2020-03-11 18:01] LABS: ALBUMIN 4.1 GM/DL (3.2-5.2); ALT/SGPT 36 U/L (12-78); BILIRUBIN,TOTAL 0.2 MG/DL (0.2-1.0); BLOOD UREA NITROGEN 7 MG/DL (7-18); CALCIUM LEVEL 8.8 MG/DL (8.5-10.1); CARBON DIOXIDE LEVEL 29 MEQ/L (21-32); CHLORIDE LEVEL 108 MEQ/L (98-107); CHOLESTEROL LEVEL 155 MG/DL (<200); CHOLESTEROL RISK RATIO 3.875 (<5); CREATININE FOR GFR 0.88 MG/DL (0.55-1.30); GLOMERULAR FILTRATION RATE > 60.0 (>60); GLUCOSE, FASTING 95 MG/DL (70-100); HDL CHOLESTEROL 40 MG/DL (>40); LDL CHOLESTEROL 78 MG/DL (<100); NON-HDL-C 115 MG/DL; POTASSIUM SERUM 5.8 MEQ/L (3.5-5.1); SODIUM LEVEL 140 MEQ/L (136-145); TOTAL PROTEIN 7.2 GM/DL (6.4-8.2); TRIGLYCERIDES LEVEL 186 MG/DL (<150)
== END ==
LOC: M LAB REF 16:05
PROVIDERS: ATTEND Nurse Practitioner Family
DX: E78.2 Mixed hyperlipidemia (principal); Z76.89 Persons encountering health services in other specified circumstances; Z13.9 Encounter for screening, unspecified

== ENCOUNTER → 2020-05-20 | Outpatient (REF) | payer OTHER, MEDICAID ==
[2020-05-20 17:22] LABS: BASO # 0.1 10^3/uL (0.0-0.2); EOS # 0.4 10^3/uL (0.0-0.5); EOS % 4.7 % (0.0-3.0); HEMATOCRIT 41.6 % (36.0-47.0); HEMOGLOBIN 13.5 g/dl (12.0-15.5); LYMPH # 2.6 10^3/uL (1.5-5.0); LYMPH % 29.7 % (24.0-44.0); MEAN CORPUSCULAR HGB CONC 32.5 g/dl (32.0-36.5); MEAN CORPUSCULAR VOLUME 92.4 fl (80.0-96.0); MONO # 0.8 10^3/uL (0.0-0.8); NEUTROPHILS # 4.9 10^3/uL (1.5-8.5); NEUTROPHILS % 55.1 % (36.0-66.0); PLATELET COUNT, AUTOMATED 328 10^3/uL (150-450); WHITE BLOOD COUNT 8.9 10^3/uL (4.0-10.0)
[2020-05-20 17:51] LABS: ALBUMIN 3.9 GM/DL (3.2-5.2); ALT/SGPT 24 U/L (12-78); BILIRUBIN,TOTAL 0.1 MG/DL (0.2-1.0); BLOOD UREA NITROGEN 10 MG/DL (7-18); CALCIUM LEVEL 8.6 MG/DL (8.5-10.1); CARBON DIOXIDE LEVEL 25 MEQ/L (21-32); CHLORIDE LEVEL 105 MEQ/L (98-107); CHOLESTEROL LEVEL 257 MG/DL (<200); CHOLESTEROL RISK RATIO 8.031 (<5); CREATININE FOR GFR 0.91 MG/DL (0.55-1.30); GLOMERULAR FILTRATION RATE > 60.0 (>60); GLUCOSE, FASTING 89 MG/DL (70-100); HDL CHOLESTEROL 32 MG/DL (>40); NON-HDL-C 225 MG/DL; SODIUM LEVEL 137 MEQ/L (136-145); TOTAL PROTEIN 7.1 GM/DL (6.4-8.2); TRIGLYCERIDES LEVEL 439 MG/DL (<150)
[2020-05-20 17:58] LABS: TOTAL 25(OH) VITAMIN D 22.2 NG/ML (30.0-100.0)
== END ==
LOC: M LAB REF 16:28
PROVIDERS: ATTEND Nurse Practitioner Family
DX: E87.5 Hyperkalemia (principal); E78.5 Hyperlipidemia, unspecified; K59.00 Constipation, unspecified; K31.84 Gastroparesis

== ENCOUNTER 2020-12-04 08:24 | Outpatient (CLI) | payer OTHER ==
[~2020-12-04 08:24] MED LIST changes: +ALBUTEROL 90 MCG/ACT 8GM HFA INHALER INH PRN; +ALBUTEROL SULFATE 2.5 MG/0.5 ML INH NEB SOLN INH PRN; +EPINEPHrine INJ 1 MG/ML 1ML AMP IM PRN; +NS 1,000 ML IV SCH; +diphenhydrAMINE 50MG/ML VIAL (J1200) IV PRN; +methylPREDNISolone 125MG 2ML VIAL IV PRN
[2020-12-04] MEDS ORDERED: CASIRIVIMAB (REGN10933) 600 MG, IMDEVIMAB (REGN10987) 600 MG in NS 250 ML IV ONE (08:30)
[2020-12-04] MEDS ORDERED: CASIRIVIMAB/IMDEVIMAB 1,200 MG in NS 250 ML IV ONE (08:30)
[2020-12-04 08:43] VITALS: BP 136/90
[2020-12-04 09:04] VITALS: BP 136/90
[2020-12-04 09:06] VITALS: BP 124/75
[2020-12-04 09:42] VITALS: BP 121/76
[2020-12-04 10:09] VITALS: BP 117/76
[2020-12-04 11:14] VITALS: BP 112/80
== END 2020-12-04 11:10 | disposition home or self-care (01) ==
LOC: M OPCLI4PR 08:24 → M MS4PR 08:33 → M OPCLI4PR 11:10
PROVIDERS: ATTEND Family Medicine Addiction Medicine
DX: U07.1 COVID-19 (principal)

== ENCOUNTER 2021-09-05 05:41 | Emergency (ER) | payer OTHER ==
[~2021-09-05] VITALS: Ht 157.5 cm; Wt 80.8 kg
[~2021-09-05 05:41] MED LIST changes: -ALBUTEROL 90 MCG/ACT 8GM HFA INHALER INH PRN; -ALBUTEROL SULFATE 2.5 MG/0.5 ML INH NEB SOLN INH PRN; -EPINEPHrine INJ 1 MG/ML 1ML AMP IM PRN; -NS 1,000 ML IV SCH; -diphenhydrAMINE 50MG/ML VIAL (J1200) IV PRN; -methylPREDNISolone 125MG 2ML VIAL IV PRN
[2021-09-05] MEDS ORDERED: FENO1CAP18 PO (06:13)
[2021-09-05] MEDS ORDERED: WELL100T2 PO (06:13)
[2021-09-05] MEDS ORDERED: NOXI1TAB PO (06:13)
[2021-09-05] MEDS ORDERED: ATOR1TAB21 PO (06:13)
[2021-09-05 06:56] LABS: BASO # 0.1 10^3/uL (0.0-0.2); BASO % 0.9 % (0.0-1.0); EOS # 0.2 10^3/uL (0.0-0.5); EOS % 2.3 % (0.0-3.0); HEMATOCRIT 36.1 % (36.0-47.0); HEMOGLOBIN 12.2 g/dl (12.0-15.5); LYMPH # 0.5 10^3/uL (1.5-5.0); LYMPH % 7.5 % (24.0-44.0); MEAN CORPUSCULAR HEMOGLOBIN 30.3 pg (27.0-33.0); MEAN CORPUSCULAR HGB CONC 33.8 g/dl (32.0-36.5); MEAN CORPUSCULAR VOLUME 89.8 fl (80.0-96.0); MONO # 0.6 10^3/uL (0.0-0.8); MONO % 8.9 % (2.0-8.0); NEUTROPHILS # 5.6 10^3/uL (1.5-8.5); PLATELET COUNT, AUTOMATED 331 10^3/uL (150-450); RED BLOOD COUNT 4.02 10^6/uL (4.00-5.40); WHITE BLOOD COUNT 7.1 10^3/uL (4.0-10.0)
[2021-09-05 07:25] LABS: CK-MB VALUE MASS < 1.0 NG/ML (<3.6); CPK CREATINE PHOSPHOKINASE 140 U/L (26-192); MB/CK RELATIVE INDEX 0.71 (< OR =4)
[2021-09-05 07:29] LABS: ALBUMIN 4.3 GM/DL (3.2-5.2); ALT/SGPT 40 U/L (12-78); BILIRUBIN,DIRECT < 0.1 MG/DL (0.0-0.2); BILIRUBIN,TOTAL 0.2 MG/DL (0.2-1.0); BLOOD UREA NITROGEN 13 MG/DL (7-18); CALCIUM LEVEL 8.9 MG/DL (8.5-10.1); CARBON DIOXIDE LEVEL 23 MEQ/L (21-32); CHLORIDE LEVEL 108 MEQ/L (98-107); CREATININE FOR GFR 1.16 MG/DL (0.55-1.30); GLUCOSE, FASTING 105 MG/DL (70-100); HCG, SERUM QUALITATIVE NEGATIVE (NEGATIVE); LIPASE 67 U/L (73-393); POTASSIUM SERUM 4.2 MEQ/L (3.5-5.1); SODIUM LEVEL 139 MEQ/L (136-145); TOTAL PROTEIN 7.7 GM/DL (6.4-8.2)
[2021-09-05] MEDS ORDERED: KETOROLAC 30 MG/ML 1ML VIAL IV ONE (09:10)
[2021-09-05] MEDS ORDERED: NS 1,000 ML IV ONE ×2 (09:10→11:05)
[2021-09-05] MEDS ORDERED: MORPHINE 4 MG/ML 1ML VIAL/SYRINGE IV ONE (11:05)
[2021-09-05] MEDS ORDERED: diazePAM 10MG/2ML SYRINGE (J3360 PER 5MG) IV ONE (12:50)
[2021-09-05] MEDS ORDERED: LIDOCAINE 5% (LIDODERM) PATCH TD ONE (12:50)
[2021-09-05 13:40] VITALS: BP 113/73
[2021-09-06] MEDS ORDERED: **NOTE PATIENT COMMENT** MISC XX ONE (01:00)
== END 2021-09-05 13:57 | disposition home or self-care (01) ==
LOC: M ED 05:41
DX: R10.11 Right upper quadrant pain (principal); K82.8 Other specified diseases of gallbladder; M79.10 Myalgia, unspecified site; R00.0 Tachycardia, unspecified; I45.19 Other right bundle-branch block; R51.9 Headache, unspecified; K58.9 Irritable bowel syndrome, unspecified; F41.9 Anxiety disorder, unspecified; Z79.899 Other long term (current) drug therapy
CPT/HCPCS: 71046; 76705; 80048; 80076; 81001; 82550; 82553; 83605; 83690; 84703; 85025; 85379; 93005; 96361; 96374; 96375; 99284; J1885; J2270; J3360

== ENCOUNTER → 2021-11-16 | Outpatient (CLI) | payer MEDICAID, OTHER ==
[~2021-11-16] MED LIST changes: +ATOR1TAB21 PO; +FENO1CAP18 PO; +NOXI1TAB PO; +WELL100T2 PO
== END ==
LOC: M PLAIMG 09:17
PROVIDERS: ATTEND Nurse Practitioner Family
DX: R42 Dizziness and giddiness (principal)

== ENCOUNTER → 2021-12-05 | Outpatient (CLI) | payer OTHER, MEDICAID ==
[~2021-12-05] MED LIST changes: +ACET-1349 PO; +BUPR1TAB52 PO; +BUSP10TA PO; +FENO160T10 PO; +HYDR-3719 PO; +MELA10CA6 PO; +METO10TA2 PO; +OMEP-173 PO; +ONDA8TAB8 PO; +VITA200012 PO; +VITMTA PO; +ZOLO50TA PO
== END ==
LOC: M LABSMTC 10:49
PROVIDERS: ATTEND Anesthesiology
DX: Z01.812 Encounter for preprocedural laboratory examination (principal); Z20.822 Contact with and (suspected) exposure to COVID-19

== ENCOUNTER 2021-12-10 07:08 | Day surgery (SDC) | payer MEDICAID, OTHER ==
[~2021-12-10] VITALS: Ht 157.5 cm; Wt 79.4 kg
[~2021-12-10 07:08] MED LIST changes: +AMPICILLIN SOD/SULBACTAM SOD 3 GM in D5W MINI-BAG PLUS 100 ML IV ONE; +CelecoXIB 400 MG CAP PO ONE; +DESFLURANE 240 ML INHALANT As Ordered ONE
[2021-12-10] MEDS ORDERED: propofoL 200 MG/20 ML VIAL As Ordered ONE (07:59)
[2021-12-10] MEDS ORDERED: LIDOCAINE 2% 100MG/5ML SDV (FOR ANES.) As Ordered ONE (07:59)
[2021-12-10] MEDS ORDERED: ROCURONIUM BROMIDE 50 MG/5 ML VIAL As Ordered ONE ×2 (08:00→09:51)
[2021-12-10] MEDS ORDERED: MIDAZOLAM INJ 2MG/2ML VIAL (J2250 PER 1MG) As Ordered ONE ×2 (08:03→09:04)
[2021-12-10] MEDS ORDERED: fentaNYL 250 MCG/5 ML INJECTION As Ordered ONE (08:04)
[2021-12-10] MEDS ORDERED: dexameTHASONE 4 MG/ML 1ML VIAL (J1100 PER 1MG) As Ordered ONE (08:04)
[2021-12-10] MEDS ORDERED: ONDANSETRON 4MG 2ML VIAL As Ordered ONE (08:04)
[2021-12-10] MEDS ORDERED: INDOCYANINE GREEN 25MG VIAL (IC-GREEN) As Ordered ONE (08:10)
[2021-12-10] MEDS ORDERED: LIDOCAINE 1% SDV 30ML VIAL As Ordered ONE (08:10)
[2021-12-10] MEDS ORDERED: BUPIVACAINE HCL 0.25% 30ML VIAL As Ordered ONE (08:10)
[2021-12-10] MEDS ORDERED: SCOPOLAMINE 1MG TRANSDERMAL PATCH TOP ONE (08:10)
[2021-12-10] MEDS ORDERED: LR 1,000 ML IV SCH ×2 (08:15→10:40)
[2021-12-10] MEDS ORDERED: ACETAMINOPHEN 1000MG 100ML IV BTL (OFIRMEV) (J0131 PER 10MG) As Ordered ONE (10:35)
[2021-12-10] MEDS ORDERED: KETOROLAC 60MG 2ML VIAL As Ordered ONE (10:37)
[2021-12-10] MEDS ORDERED: SUGAMMADEX SODIUM 500 MG/5 ML VIAL (BRIDION) As Ordered ONE (10:38)
[2021-12-10] MEDS ORDERED: ONDANSETRON 4MG 2ML VIAL IV PRN (10:40)
[2021-12-10] MEDS ORDERED: MORPHINE 2 MG/ML 1ML VIAL IV PRN (10:40)
[2021-12-10] MEDS ORDERED: KETO10TAB PO (10:43)
[2021-12-10] MEDS ORDERED: METOCLOPRAMIDE INJ 10MG/2ML VIAL (J2765 PER 1) As Ordered ONE (10:55)
[2021-12-10] MEDS: oxyCODONE 5MG TAB PO PRN ×3 (11:20→13:08)
[2021-12-10] MEDS: fentaNYL 100 MCG/2 ML INJECTION IV PRN ×4 (11:20→12:06)
[2021-12-10] MEDS ORDERED: PROMETHAZINE 25MG/ML 1ML VIAL IV PRN (11:35)
[2021-12-10] MEDS ORDERED: ePHEDrine SULFATE 25 MG/5 ML(5MG/ML) SYRINGE As Ordered ONE (11:59)
[2021-12-10] MEDS ORDERED: KETOROLAC 30 MG/ML 1ML VIAL IV PRN (12:40)
[2021-12-10] MEDS ORDERED: PERCOCET 5MG/325MG TAB PO PRN ×2 (12:40)
[2021-12-10 13:51] VITALS: BP 131/79
== END 2021-12-10 14:00 | disposition home or self-care (01) ==
LOC: M SDC 07:08
PROVIDERS: ATTEND Surgery
DX: K81.1 Chronic cholecystitis (principal); I25.10 Atherosclerotic heart disease of native coronary artery without angina pectoris; K58.1 Irritable bowel syndrome with constipation; K21.9 Gastro-esophageal reflux disease without esophagitis; G43.909 Migraine, unspecified, not intractable, without status migrainosus; F32.A Depression, unspecified; F43.10 Post-traumatic stress disorder, unspecified; Z79.899 Other long term (current) drug therapy; G35 Multiple sclerosis; Z87.891 Personal history of nicotine dependence
CPT/HCPCS: 47563; 64486; 81025; 88304; J0131; J0295; J1100; J1885; J2250; J2270; J2405; J2550; J2765; J3010; Q9968; S2900

== ENCOUNTER → 2021-12-30 | Outpatient (CLI) | payer OTHER ==
[~2021-12-30] MED LIST changes: -AMPICILLIN SOD/SULBACTAM SOD 3 GM in D5W MINI-BAG PLUS 100 ML IV ONE; -CelecoXIB 400 MG CAP PO ONE; -DESFLURANE 240 ML INHALANT As Ordered ONE; +KETO10TAB PO
== END ==
LOC: M LABSMTC 11:18
PROVIDERS: ATTEND Anesthesiology
DX: Z01.812 Encounter for preprocedural laboratory examination (principal); Z20.822 Contact with and (suspected) exposure to COVID-19

== ENCOUNTER 2022-01-03 08:10 | Day surgery (SDC) | payer OTHER ==
[~2022-01-03] VITALS: Ht 157.5 cm; Wt 80.0 kg
[~2022-01-03 08:10] MED LIST changes: +NS 1,000 ML IV ONE
[2022-01-03] MEDS ORDERED: LIDOCAINE 2% 100MG/5ML SDV (FOR ANES.) As Ordered ONE (09:26)
[2022-01-03] MEDS ORDERED: propofoL 200 MG/20 ML VIAL As Ordered ONE (09:26)
[2022-01-03 10:07] VITALS: BP 132/71
== END 2022-01-03 10:39 | disposition home or self-care (01) ==
LOC: M OPP 08:10
PROVIDERS: ATTEND Internal Medicine Gastroenterology
DX: K63.89 Other specified diseases of intestine (principal); K64.4 Residual hemorrhoidal skin tags; K64.8 Other hemorrhoids; K92.1 Melena; Z79.02 Long term (current) use of antithrombotics/antiplatelets; Z79.891 Long term (current) use of opiate analgesic; Z79.899 Other long term (current) drug therapy; Z88.8 Allergy status to other drugs, medicaments and biological substances; I73.00 Raynaud's syndrome without gangrene; G35 Multiple sclerosis; I25.119 Atherosclerotic heart disease of native coronary artery with unspecified angina pectoris; E20.9 Hypoparathyroidism, unspecified; K31.84 Gastroparesis; R35.0 Frequency of micturition; M19.90 Unspecified osteoarthritis, unspecified site; F32.9 Major depressive disorder, single episode, unspecified; F41.9 Anxiety disorder, unspecified; Z90.89 Acquired absence of other organs; Z80.1 Family history of malignant neoplasm of trachea, bronchus and lung; Z80.0 Family history of malignant neoplasm of digestive organs

== ENCOUNTER → 2022-01-05 | Outpatient (CLI) | payer OTHER ==
[~2022-01-05] MED LIST changes: +BARIUM SULFATE 700 MG TABLET (E-Z-DISK) As Ordered ONE; +E-Z-PAQUE 96% w/w SUSP 176GM BTL As Ordered ONE; -NS 1,000 ML IV ONE; +VARIBAR NECTAR 40% w/v 240ML SUSP BTL As Ordered ONE; +VARIBAR PUDDING 40% w/v 230ML TUBE As Ordered ONE
== END ==
LOC: M RAD 11:01
PROVIDERS: ATTEND Internal Medicine
DX: R09.89 Other specified symptoms and signs involving the circulatory and respiratory systems (principal)

== ENCOUNTER → 2022-02-04 | Outpatient (CLI) | payer OTHER, MEDICAID ==
[~2022-02-04] MED LIST changes: -BARIUM SULFATE 700 MG TABLET (E-Z-DISK) As Ordered ONE; -E-Z-PAQUE 96% w/w SUSP 176GM BTL As Ordered ONE; -VARIBAR NECTAR 40% w/v 240ML SUSP BTL As Ordered ONE; -VARIBAR PUDDING 40% w/v 230ML TUBE As Ordered ONE
[2022-02-04 16:26] LABS: FOLLICLE STIMULATING HORMONE 7.7 mIU/ML
[2022-02-04 16:27] LABS: ESTRADIOL 86.6 PG/ML; LUTEINIZING HORMONE 7.1 mIU/ML
== END ==
LOC: M PLALAB 12:27
PROVIDERS: ATTEND Obstetrics & Gynecology
DX: N95.1 Menopausal and female climacteric states (principal)

== ENCOUNTER → 2022-03-14 | Outpatient (REF) | payer OTHER, MEDICAID ==
[2022-03-14 17:12] LABS: APPEARANCE, URINE MANUAL CLEAR (CLEAR); BILIRUBIN, URINE MANUAL NEGATIVE (NEGATIVE); BLOOD URINE MANUAL NEGATIVE (NEGATIVE); COLOR, URINE MANUAL YELLOW (YELLOW); GLUCOSE, URINE (UA) MANUAL NEGATIVE (NEGATIVE); KETONE, URINE MANUAL NEGATIVE (NEGATIVE); LEUKOCYTE ESTERASE, URINE MAN NEGATIVE (NEGATIVE); NITRITE, URINE MANUAL NEGATIVE (NEGATIVE); PROTEIN, URINE MANUAL NEGATIVE (NEGATIVE); SPECIFIC GRAVITY,URINE MANUAL 1.025 (1.002-1.035); UROBILINOGEN, URINE MANUAL NORMAL (NORMAL)
== END ==
LOC: M SMT 16:41
PROVIDERS: ATTEND Physician Assistant
DX: R35.0 Frequency of micturition (principal)

== ENCOUNTER → 2022-03-23 | Outpatient (REF) | payer OTHER, MEDICAID | LOC: M LAB REF 12:25 | PROVIDERS: ATTEND Nurse Practitioner Family | DX: E88.81 Metabolic syndrome and other insulin resistance (principal) ==

== ENCOUNTER → 2022-03-30 | Outpatient (CLI) | payer MEDICAID, OTHER | LOC: M RAD 10:36 | PROVIDERS: ATTEND Physician Assistant | DX: R35.0 Frequency of micturition (principal) ==

== ENCOUNTER 2022-07-19 12:43 | Outpatient (RCR) | payer OTHER ==
[~2022-07-19 12:43] MED LIST changes: +AMIT24CA7 PO; +FLOM0.4C39 PO; +OXYB10TA23 PO; +PANT20TA6 PO
== END 2022-07-27 ==
LOC: M PT 12:43
PROVIDERS: ATTEND Psychiatry & Neurology Neurology
DX: M54.50 Low back pain, unspecified (principal)

== ENCOUNTER 2022-07-21 11:31 | Day surgery (SDC) | payer OTHER ==
[~2022-07-21] VITALS: Ht 157.5 cm; Wt 76.4 kg
[~2022-07-21 11:31] MED LIST changes: +NS 1,000 ML IV ONE
[2022-07-21] MEDS ORDERED: propofoL 200 MG/20 ML VIAL As Ordered ONE (13:03)
[2022-07-21] MEDS ORDERED: MIDAZOLAM INJ 2MG/2ML VIAL As Ordered ONE (13:06)
[2022-07-21] MEDS ORDERED: fentaNYL 100 MCG/2 ML INJECTION As Ordered ONE (13:07)
[2022-07-21 14:30] VITALS: BP 126/74
== END 2022-07-21 14:34 | disposition home or self-care (01) ==
LOC: M OPP 11:31
PROVIDERS: ATTEND Internal Medicine Gastroenterology
DX: K29.70 Gastritis, unspecified, without bleeding (principal); K20.0 Eosinophilic esophagitis; Z79.02 Long term (current) use of antithrombotics/antiplatelets; Z79.891 Long term (current) use of opiate analgesic; Z79.899 Other long term (current) drug therapy; Z88.8 Allergy status to other drugs, medicaments and biological substances
CPT/HCPCS: 43239; 88305; J2250; J3010

== ENCOUNTER 2022-08-23 12:45 | Outpatient (RCR) | payer OTHER ==
[~2022-08-23 12:45] MED LIST changes: -NS 1,000 ML IV ONE
== END 2022-08-26 ==
LOC: M PT 12:45
PROVIDERS: ATTEND Psychiatry & Neurology Neurology
DX: M54.50 Low back pain, unspecified (principal)

== ENCOUNTER → 2022-09-06 | Outpatient (REF) | payer OTHER, MEDICAID ==
[2022-09-06 18:34] LABS: BASO # 0.1 10^3/uL (0.0-0.2); BASO % 0.9 % (0.0-1.0); EOS # 0.2 10^3/uL (0.0-0.5); EOS % 4.1 % (0.0-3.0); HEMATOCRIT 37.8 % (36.0-47.0); HEMOGLOBIN 12.1 g/dl (12.0-15.5); LYMPH # 2.2 10^3/uL (1.5-5.0); LYMPH % 39.1 % (24.0-44.0); MEAN CORPUSCULAR HEMOGLOBIN 29.6 pg (27.0-33.0); MEAN CORPUSCULAR VOLUME 92.4 fl (80.0-96.0); MONO # 0.5 10^3/uL (0.0-0.8); NEUTROPHILS # 2.7 10^3/uL (1.5-8.5); NEUTROPHILS % 47.7 % (36.0-66.0); PLATELET COUNT, AUTOMATED 406 10^3/uL (150-450); RED BLOOD COUNT 4.09 10^6/uL (4.00-5.40); WHITE BLOOD COUNT 5.6 10^3/uL (4.0-10.0)
[2022-09-06 18:36] LABS: HEMOGLOBIN A1c 6.6 % (4.0-6.0)
[2022-09-06 18:52] LABS: THYROID STIMULATING HORMONE 1.919 uIU/ML (0.55-4.78); TOTAL 25(OH) VITAMIN D 34.8 NG/ML (20.0-100.0)
[2022-09-06 18:53] LABS: ALBUMIN 4.3 G/DL (3.2-5.2); ALKALINE PHOSPHATASE 36 U/L (46-116); ALT/SGPT 12 U/L (7.0-40); AST/SGOT 20 U/L (<34); BILIRUBIN,TOTAL 0.2 MG/DL (0.3-1.2); BLOOD UREA NITROGEN 14 MG/DL (9-23); CARBON DIOXIDE LEVEL 26 MMOL/L (20-31); CHLORIDE LEVEL 107 MMOL/L (98-107); CHOLESTEROL LEVEL 129 MG/DL (<200); CHOLESTEROL RISK RATIO 2.24 (<5); CREATININE FOR GFR 0.92 MG/DL (0.55-1.30); GLOMERULAR FILTRATION RATE > 60.0 (>60); GLUCOSE, FASTING 84 MG/DL (60-100); HDL CHOLESTEROL 57.4 MG/DL (>40); LDL CHOLESTEROL 55.8 MG/DL (<100); NON-HDL-C 71.6 MG/DL; POTASSIUM SERUM 4.9 MMOL/L (3.5-5.1); SODIUM LEVEL 139 MMOL/L (136-145); TRIGLYCERIDES LEVEL 79 MG/DL (<150)
== END ==
LOC: M LAB REF 16:55
PROVIDERS: ATTEND Nurse Practitioner Family
DX: Z13.228 Encounter for screening for other metabolic disorders (principal)

== ENCOUNTER 2022-09-07 12:45 | Outpatient (RCR) | payer OTHER | END 2022-09-26 | LOC: M PT 12:45 | PROVIDERS: ATTEND Psychiatry & Neurology Neurology | DX: M54.50 Low back pain, unspecified (principal) ==

== ENCOUNTER → 2022-09-20 | Outpatient (REF) | payer OTHER, MEDICAID ==
[2022-09-20 18:58] LABS: THYROID STIMULATING HORMONE 2.752 uIU/ML (0.55-4.78); THYROXINE (T4) 11.7 UG/DL (4.5-10.9)
[2022-09-20 19:00] LABS: FREE THYROXINE INDEX 3.5 % (1.3-4.8); PTH INTACT 33.4 PG/ML (18.5-88.0); T UPTAKE 30.3 % (22.5-37.0)
== END ==
LOC: M LAB REF 16:22
PROVIDERS: ATTEND Nurse Practitioner Family
DX: L65.9 Nonscarring hair loss, unspecified (principal)

== ENCOUNTER → 2022-11-01 | Outpatient (CLI) | payer OTHER | LOC: M PLAIMG 10:50 | PROVIDERS: ATTEND Physician Assistant | DX: N23 Unspecified renal colic (principal) ==

== ENCOUNTER → 2022-12-02 | Outpatient (CLI) | payer OTHER ==
[2022-12-02 11:33] LABS: HEMOGLOBIN A1c 5.1 % (4.0-6.0)
== END ==
LOC: M PLALAB 08:21
PROVIDERS: ATTEND Nurse Practitioner Family
DX: R73.03 Prediabetes (principal)

== ENCOUNTER → 2022-12-25 | Outpatient (CLI) | payer OTHER ==
[~2022-12-25] MED LIST changes: +BACL10TA2 PO; +FLUT22IN PO; +LINZ72CA PO; +METF-817 PO; +PRAZ1CAP PO
[2022-12-25 13:34] LABS: HEMATOCRIT 35.1 % (36.0-47.0); MEAN CORPUSCULAR HEMOGLOBIN 30.6 pg (27.0-33.0); MEAN CORPUSCULAR HGB CONC 34.2 g/dl (32.0-36.5); MEAN CORPUSCULAR VOLUME 89.5 fl (80.0-96.0); PLATELET COUNT, AUTOMATED 312 10^3/uL (150-450); RED BLOOD COUNT 3.92 10^6/uL (4.00-5.40); WHITE BLOOD COUNT 5.5 10^3/uL (4.0-10.0)
[2022-12-25 13:41] LABS: APPEARANCE, URINE CLEAR (CLEAR); BACTERIA, URINE AUTO NEGATIVE (NEGATIVE); BILIRUBIN, URINE AUTO NEGATIVE (NEGATIVE); BLOOD, URINE BLOOD NEGATIVE (NEGATIVE); COLOR, URINE YELLOW (YELLOW); GLUCOSE, URINE (UA) AUTO NEGATIVE (NEGATIVE); KETONE, URINE AUTO TRACE mg/dL (NEGATIVE); LEUKOCYTE ESTERASE, URINE AUTO NEGATIVE (NEGATIVE); MUCUS, URINE SMALL (NEGATIVE); NITRITE, URINE AUTO NEGATIVE (NEGATIVE); PROTEIN, URINE AUTO NEGATIVE (NEGATIVE); RBC, URINE AUTO 0 /HPF (0-3); SPECIFIC GRAVITY URINE AUTO 1.026 (1.002-1.035); SQUAMOUS EPITHELIAL CELL UR AU 1 /HPF (0-6); UROBILINOGEN, URINE AUTO 0.2 mg/dL (0.0-2.0); WBC, URINE AUTO 1 /HPF (0-3)
[2022-12-25 13:58] LABS: BLOOD UREA NITROGEN 11 MG/DL (9-23); CARBON DIOXIDE LEVEL 26 MMOL/L (20-31); CHLORIDE LEVEL 109 MMOL/L (98-107); CREATININE FOR GFR 0.73 MG/DL (0.55-1.30); GLOMERULAR FILTRATION RATE > 60.0 (>60); GLUCOSE, FASTING 66 MG/DL (60-100); SODIUM LEVEL 143 MMOL/L (136-145)
== END ==
LOC: M RAD 12:45
PROVIDERS: ATTEND Physician Assistant
DX: Z01.818 Encounter for other preprocedural examination (principal)

== ENCOUNTER 2022-12-29 05:58 | Day surgery (SDC) | payer OTHER ==
[~2022-12-29] VITALS: Ht 157.5 cm; Wt 71.4 kg
[2022-12-29] MEDS ORDERED: ceFAZolin SOD 2 GM in IV 1 EA IV ONE (06:00)
[2022-12-29] MEDS ORDERED: LR 1,000 ML IV SCH (06:50)
[2022-12-29] MEDS ORDERED: LIDOCAINE 2% 100MG/5ML SDV (FOR ANES.) As Ordered ONE (06:53)
[2022-12-29] MEDS ORDERED: propofoL 200 MG/20 ML VIAL As Ordered ONE ×2 (06:54→08:00)
[2022-12-29] MEDS ORDERED: ONDANSETRON 4MG 2ML VIAL As Ordered ONE (06:54)
[2022-12-29] MEDS ORDERED: fentaNYL 100 MCG/2 ML INJECTION As Ordered ONE (06:59)
[2022-12-29] MEDS ORDERED: MIDAZOLAM INJ 2MG/2ML VIAL As Ordered ONE (06:59)
[2022-12-29] MEDS ORDERED: LIDOCAINE W/EPINEPHRINE 1% 20ML VIAL XX ONE (07:00)
[2022-12-29] MEDS ORDERED: SODIUM BICARBONATE 8.4% INJ 50MEQ 50ML VIAL XX ONE (07:00)
[2022-12-29] MEDS ORDERED: ACETAMINOPHEN 1000MG 100ML IV BAG As Ordered ONE (07:38)
[2022-12-29] MEDS ORDERED: FLOM0.4C39 PO (07:52)
[2022-12-29] MEDS ORDERED: PERCOCET 5MG/325MG TAB PO PRN (08:40)
[2022-12-29] MEDS ORDERED: KETO10TAB PO (09:16)
[2022-12-29] MEDS ORDERED: KETOROLAC 30 MG/ML 1ML VIAL IV ONE (09:20)
[2022-12-29 09:35] VITALS: BP 134/86; TEMP 96.9; O2SAT 100
== END 2022-12-29 09:35 | disposition home or self-care (01) ==
LOC: M SDC 05:58
PROVIDERS: ATTEND Urology
DX: N20.0 Calculus of kidney (principal); Z79.899 Other long term (current) drug therapy; I10 Essential (primary) hypertension; E78.5 Hyperlipidemia, unspecified; K58.8 Other irritable bowel syndrome; K21.9 Gastro-esophageal reflux disease without esophagitis; F41.9 Anxiety disorder, unspecified; F32.A Depression, unspecified; G43.909 Migraine, unspecified, not intractable, without status migrainosus; G35 Multiple sclerosis; R42 Dizziness and giddiness; F43.10 Post-traumatic stress disorder, unspecified; Z88.8 Allergy status to other drugs, medicaments and biological substances
CPT/HCPCS: 50590; 74018; J0131; J1100; J1885; J2250; J2405; J3010

== ENCOUNTER → 2023-01-24 | Outpatient (CLI) | payer OTHER | LOC: M PLAIMG 10:00 | PROVIDERS: ATTEND Urology | DX: N20.0 Calculus of kidney (principal) ==

== ENCOUNTER → 2023-03-01 | Outpatient (REF) | payer OTHER, MEDICAID | LOC: M SFHCDERM 12:34 | PROVIDERS: ATTEND Physician Assistant | DX: D22.5 Melanocytic nevi of trunk (principal) ==

== ENCOUNTER → 2023-03-31 | Outpatient (CLI) | payer OTHER | LOC: M RAD 10:04 | PROVIDERS: ATTEND Physician Assistant | DX: I65.23 Occlusion and stenosis of bilateral carotid arteries (principal) ==

== ENCOUNTER → 2023-06-26 | Outpatient (CLI) | payer MEDICAID, OTHER | LOC: M PLAIMG 10:46 | PROVIDERS: ATTEND Physician Assistant | DX: Z87.442 Personal history of urinary calculi (principal) ==

== ENCOUNTER → 2023-06-26 | Outpatient (CLI) | payer OTHER, MEDICAID ==
[2023-06-26 14:16] LABS: ALBUMIN 3.7 G/DL (3.2-5.2); ALKALINE PHOSPHATASE 56 U/L (46-116); ALT/SGPT 21 U/L (7.0-40); AST/SGOT 16 U/L (<34); BILIRUBIN,TOTAL 0.3 MG/DL (0.3-1.2); BLOOD UREA NITROGEN 14 MG/DL (9-23); CALCIUM LEVEL 8.1 MG/DL (8.5-10.1); CARBON DIOXIDE LEVEL 29 MMOL/L (20-31); CHLORIDE LEVEL 105 MMOL/L (98-107); CREATININE FOR GFR 0.82 MG/DL (0.55-1.30); GLOMERULAR FILTRATION RATE > 60.0 (>60); GLUCOSE, FASTING 82 MG/DL (60-100); SODIUM LEVEL 140 MMOL/L (136-145); TOTAL PROTEIN 6.9 G/DL (5.7-8.2)
[2023-06-26 14:19] LABS: PTH INTACT 43.7 PG/ML (18.5-88.0); THYROID STIMULATING HORMONE 5.077 uIU/ML (0.55-4.78)
[2023-06-26 14:20] LABS: FREE T4 0.87 NG/DL (0.89-1.76)
[2023-06-26 14:23] LABS: THYROID PEROXIDASE ANTIBODY 43 U/ML (<60.0)
== END ==
LOC: M PLALAB 10:48
PROVIDERS: ATTEND Nurse Practitioner Family
DX: R53.83 Other fatigue (principal); E21.3 Hyperparathyroidism, unspecified

== ENCOUNTER → 2023-07-03 | Outpatient (REF) | payer OTHER, MEDICAID ==
[2023-07-03 18:29] LABS: Trichomonas vaginalis (AMP) POSITIVE (NEGATIVE)
[2023-07-03 18:57] LABS: GC DNA AMPLIFICATION NEGATIVE (NEGATIVE)
== END ==
LOC: M LAB REF 16:06
PROVIDERS: ATTEND Nurse Practitioner Family
DX: Z11.3 Encounter for screening for infections with a predominantly sexual mode of transmission (principal)

== ENCOUNTER → 2023-07-04 | Outpatient (REF) | payer OTHER, MEDICAID ==
[2023-07-04 14:18] LABS: ALBUMIN 3.6 G/DL (3.2-5.2); ALKALINE PHOSPHATASE 45 U/L (46-116); ALT/SGPT 17 U/L (7.0-40); AST/SGOT 11 U/L (<34); BILIRUBIN,TOTAL < 0.2 MG/DL (0.3-1.2); BLOOD UREA NITROGEN 15 MG/DL (9-23); CALCIUM LEVEL 8.4 MG/DL (8.5-10.1); CARBON DIOXIDE LEVEL 26 MMOL/L (20-31); CHLORIDE LEVEL 107 MMOL/L (98-107); CREATININE FOR GFR 0.75 MG/DL (0.55-1.30); GLOMERULAR FILTRATION RATE > 60.0 (>60); GLUCOSE, FASTING 98 MG/DL (60-100); POTASSIUM SERUM 4.3 MMOL/L (3.5-5.1); SODIUM LEVEL 140 MMOL/L (136-145); TOTAL PROTEIN 6.7 G/DL (5.7-8.2)
[2023-07-04 14:22] LABS: THYROID STIMULATING HORMONE 2.711 uIU/ML (0.55-4.78)
[2023-07-04 14:24] LABS: FREE T4 0.76 NG/DL (0.89-1.76)
[2023-07-04 14:47] LABS: HIV 1&2 SCREEN NEGATIVE (NEGATIVE)
[2023-07-04 14:54] LABS: HEPATITIS C VIRUS ABY INDEX < 0.02 INDEX (<0.8)
== END ==
LOC: M LAB REF 12:50
PROVIDERS: ATTEND Nurse Practitioner Family
DX: Z11.3 Encounter for screening for infections with a predominantly sexual mode of transmission (principal); R89.1 Abnormal level of hormones in specimens from other organs, systems and tissues; R73.03 Prediabetes

== ENCOUNTER 2023-08-26 16:09 | Emergency (ER) | payer MEDICAID, OTHER ==
[~2023-08-26] VITALS: Ht 157.5 cm; Wt 77.3 kg
[~2023-08-26 16:09] MED LIST changes: +ONDA-284 PO; -ONDA8TAB8 PO
[2023-08-26 16:45] LABS: BASO # 0.1 10^3/uL (0.0-0.2); BASO % 0.9 % (0.0-1.0); EOS # 0.4 10^3/uL (0.0-0.5); EOS % 5.8 % (0.0-3.0); HEMATOCRIT 36.8 % (36.0-47.0); HEMOGLOBIN 12.1 g/dl (12.0-15.5); LYMPH # 2.2 10^3/uL (1.5-5.0); LYMPH % 29.8 % (24.0-44.0); MEAN CORPUSCULAR HEMOGLOBIN 30.2 pg (27.0-33.0); MEAN CORPUSCULAR HGB CONC 32.9 g/dl (32.0-36.5); MEAN CORPUSCULAR VOLUME 91.8 fl (80.0-96.0); MONO # 0.6 10^3/uL (0.0-0.8); MONO % 7.5 % (2.0-8.0); NEUTROPHILS # 4.2 10^3/uL (1.5-8.5); NEUTROPHILS % 55.6 % (36.0-66.0); PLATELET COUNT, AUTOMATED 333 10^3/uL (150-450); RED BLOOD COUNT 4.01 10^6/uL (4.00-5.40); WHITE BLOOD COUNT 7.5 10^3/uL (4.0-10.0)
[2023-08-26 17:06] LABS: LIPASE 31 U/L (12-53)
[2023-08-26 17:08] LABS: ALBUMIN 3.7 G/DL (3.2-5.2); ALKALINE PHOSPHATASE 44 U/L (46-116); ALT/SGPT 19 U/L (7.0-40); AST/SGOT 11 U/L (<34); BILIRUBIN,DIRECT < 0.1 MG/DL (<0.4); BILIRUBIN,TOTAL 0.3 MG/DL (0.3-1.2); BLOOD UREA NITROGEN 9 MG/DL (9-23); CALCIUM LEVEL 8.4 MG/DL (8.5-10.1); CARBON DIOXIDE LEVEL 26 MMOL/L (20-31); CHLORIDE LEVEL 108 MMOL/L (98-107); CREATININE FOR GFR 0.68 MG/DL (0.55-1.30); GLOMERULAR FILTRATION RATE > 60.0 (>60); GLUCOSE, FASTING 99 MG/DL (60-100); POTASSIUM SERUM 4.2 MMOL/L (3.5-5.1); SODIUM LEVEL 139 MMOL/L (136-145); TOTAL PROTEIN 6.5 G/DL (5.7-8.2)
[2023-08-26 17:27] LABS: HCG, SERUM QUANTITATIVE 26913.1 MIU/ML (<4.2)
[2023-08-26 18:22] VITALS: BP 106/61; TEMP 97.6; O2SAT 98
== END 2023-08-26 18:41 | disposition home or self-care (01) ==
LOC: M ED 16:09
DX: O20.0 Threatened abortion (principal); I10 Essential (primary) hypertension; G43.909 Migraine, unspecified, not intractable, without status migrainosus; K58.9 Irritable bowel syndrome, unspecified; Z87.442 Personal history of urinary calculi; Z88.6 Allergy status to analgesic agent; Z79.899 Other long term (current) drug therapy; Z3A.01 Less than 8 weeks gestation of pregnancy

== ENCOUNTER → 2023-08-28 | Outpatient (REF) | payer OTHER ==
[2023-08-28 16:18] LABS: HCG, SERUM QUALITATIVE POSITIVE (NEGATIVE)
[2023-08-28 17:37] LABS: HCG, SERUM QUANTITATIVE 20431.8 MIU/ML (<4.2)
== END ==
LOC: M LAB REF 14:56
PROVIDERS: ATTEND Family Medicine
DX: Z33.1 Pregnant state, incidental (principal)

== ENCOUNTER → 2023-08-29 | Outpatient (CLI) | payer OTHER | LOC: M RAD 16:18 | PROVIDERS: ATTEND Obstetrics & Gynecology | DX: Z34.80 Encounter for supervision of other normal pregnancy, unspecified trimester (principal) ==

== ENCOUNTER 2023-08-30 21:26 | Day surgery (SDC) | payer OTHER ==
[~2023-08-30] VITALS: Ht 157.5 cm; Wt 79.5 kg
[2023-08-30 22:08] LABS: BASO # 0.1 10^3/uL (0.0-0.2); BASO % 0.7 % (0.0-1.0); EOS # 0.5 10^3/uL (0.0-0.5); EOS % 4.5 % (0.0-3.0); HEMATOCRIT 33.3 % (36.0-47.0); HEMOGLOBIN 11.1 g/dl (12.0-15.5); LYMPH # 2.7 10^3/uL (1.5-5.0); LYMPH % 24.4 % (24.0-44.0); MEAN CORPUSCULAR HEMOGLOBIN 30.2 pg (27.0-33.0); MEAN CORPUSCULAR HGB CONC 33.3 g/dl (32.0-36.5); MEAN CORPUSCULAR VOLUME 90.5 fl (80.0-96.0); MONO # 0.7 10^3/uL (0.0-0.8); MONO % 6.7 % (2.0-8.0); NEUTROPHILS # 6.9 10^3/uL (1.5-8.5); NEUTROPHILS % 63.2 % (36.0-66.0); PLATELET COUNT, AUTOMATED 341 10^3/uL (150-450); RED BLOOD COUNT 3.68 10^6/uL (4.00-5.40)
[2023-08-30 22:33] LABS: BLOOD UREA NITROGEN 12 MG/DL (9-23); CALCIUM LEVEL 8.8 MG/DL (8.5-10.1); CARBON DIOXIDE LEVEL 25 MMOL/L (20-31); CHLORIDE LEVEL 104 MMOL/L (98-107); CREATININE FOR GFR 0.77 MG/DL (0.55-1.30); GLOMERULAR FILTRATION RATE > 60.0 (>60); GLUCOSE, FASTING 95 MG/DL (60-100); POTASSIUM SERUM 4.2 MMOL/L (3.5-5.1); SODIUM LEVEL 136 MMOL/L (136-145)
[2023-08-30] MEDS: ONDANSETRON 4MG 2ML VIAL IV ONE (22:46)
[2023-08-30] MEDS: MORPHINE 4 MG/ML 1ML VIAL IV PRN (22:47)
[2023-08-30 22:48] LABS: HCG, SERUM QUANTITATIVE 10478.7 MIU/ML (<4.2)
[2023-08-30] MEDS: NS 1,000 ML IV ONE (23:15)
[2023-08-30] MEDS: KETOROLAC 30 MG/ML 1ML VIAL IV ONE (23:28)
[2023-08-31] MEDS ORDERED: fentaNYL 100 MCG/2 ML INJECTION As Ordered ONE (00:54)
[2023-08-31] MEDS ORDERED: LIDOCAINE 2% 100MG/5ML SDV (FOR ANES.) As Ordered ONE (00:54)
[2023-08-31] MEDS ORDERED: ROCURONIUM BROMIDE 50MG/5ML VIAL As Ordered ONE (00:54)
[2023-08-31] MEDS ORDERED: MIDAZOLAM INJ 2MG/2ML VIAL As Ordered ONE (00:54)
[2023-08-31] MEDS ORDERED: KETOROLAC 60MG 2ML VIAL As Ordered ONE (00:54)
[2023-08-31] MEDS ORDERED: propofoL 200 MG/20 ML VIAL As Ordered ONE (00:54)
[2023-08-31] MEDS ORDERED: ONDANSETRON 4MG 2ML VIAL As Ordered ONE (00:54)
[2023-08-31] MEDS ORDERED: SUCCINYLCHOLINE 100MG/5ML SYRINGE As Ordered ONE (00:54)
[2023-08-31] MEDS ORDERED: SUGAMMADEX SODIUM 500 MG/5 ML VIAL (BRIDION) As Ordered ONE (01:18)
[2023-08-31] MEDS: DOXYCYCLINE HYCLATE 100MG/10ML VIAL As Ordered ONE (01:23)
[2023-08-31] MEDS: SCOPOLAMINE 1MG TRANSDERMAL PATCH As Ordered ONE (01:23)
[2023-08-31] MEDS ORDERED: ePHEDrine SULFATE 25 MG/5 ML(5MG/ML) SYRINGE As Ordered ONE (01:29)
[2023-08-31] MEDS ORDERED: PHENYLephrine 500MCG 5ML (100MCG/ML) SYRINGE As Ordered ONE (01:29)
[2023-08-31] MEDS ORDERED: DOCUSATE SODIUM 100MG CAPSULE PO PRN (01:55)
[2023-08-31] MEDS ORDERED: ONDANSETRON 4MG 2ML VIAL IV PRN ×2 (01:55→02:00)
[2023-08-31] MEDS ORDERED: METOCLOPRAMIDE INJ 10MG/2ML VIAL IV PRN (01:55)
[2023-08-31] MEDS ORDERED: fentaNYL 100 MCG/2 ML INJECTION IV PRN (02:00)
[2023-08-31] MEDS ORDERED: HYDROMORPHONE HCL 0.5 MG/ 0.5 ML SYRINGE IV PRN (02:00)
[2023-08-31] MEDS ORDERED: LR 1,000 ML IV SCH (02:00)
[2023-08-31] MEDS ORDERED: oxyCODONE 5MG TAB PO PRN (02:00)
[2023-08-31 03:00] VITALS: BP 110/59; TEMP 98.1; O2SAT 98
[2023-08-31] MEDS: IBUPROFEN 600MG TAB PO PRN (03:45)
[2023-08-31] MEDS: ACETAMINOPHEN 500 MG TAB PO PRN (04:46)
[2023-08-31] MEDS: LORazepam 2 MG/ML 1ML VIAL IV PRN (05:14)
== END 2023-08-31 10:58 | disposition home or self-care (01) ==
LOC: M ED 21:26 → M SDC 08-31 00:20 → M MSPAV 08-31 02:04 → INTOOBSV 08-31 02:04 → M ED INP 08-31 02:04 → UNDOADMOB 08-31 02:04 → M SDC 08-31 10:58 → UNDODISOB 08-31 10:58
PROVIDERS: ATTEND Obstetrics & Gynecology
DX: O02.1 Missed abortion (principal)
CPT/HCPCS: 59820; 76801; 80048; 84702; 85025; 86850; 86900; 86901; 88305; 99285; J0330; J1100; J1885; J2060; J2250; J2371; J2405; J3010

== ENCOUNTER → 2023-10-10 | Outpatient (REF) | payer OTHER, MEDICAID ==
[2023-10-10 14:36] LABS: HEMOGLOBIN A1c 4.8 % (4.0-6.0)
[2023-10-10 14:50] LABS: ALBUMIN 3.7 G/DL (3.2-5.2); ALKALINE PHOSPHATASE 49 U/L (46-116); ALT/SGPT 17 U/L (7.0-40); AST/SGOT 16 U/L (<34); BILIRUBIN,TOTAL 0.2 MG/DL (0.3-1.2); BLOOD UREA NITROGEN 11 MG/DL (9-23); CARBON DIOXIDE LEVEL 27 MMOL/L (20-31); CHLORIDE LEVEL 110 MMOL/L (98-107); CHOLESTEROL LEVEL 231 MG/DL (<200); CREATININE FOR GFR 0.77 MG/DL (0.55-1.30); GLOMERULAR FILTRATION RATE > 60.0 (>60); GLUCOSE, FASTING 92 MG/DL (60-100); HDL CHOLESTEROL 38.5 MG/DL (>40); LDL CHOLESTEROL 137.7 MG/DL (<100); NON-HDL-C 192.5 MG/DL; POTASSIUM SERUM 4.8 MMOL/L (3.5-5.1); SODIUM LEVEL 142 MMOL/L (136-145); TOTAL PROTEIN 6.8 G/DL (5.7-8.2); TRIGLYCERIDES LEVEL 274 MG/DL (<150)
[2023-10-10 14:55] LABS: FREE T4 0.95 NG/DL (0.89-1.76); THYROID STIMULATING HORMONE 2.144 uIU/ML (0.55-4.78)
== END ==
LOC: M LAB REF 13:14
PROVIDERS: ATTEND Nurse Practitioner Family
DX: E66.9 Obesity, unspecified (principal); E78.2 Mixed hyperlipidemia; R73.03 Prediabetes; Z11.3 Encounter for screening for infections with a predominantly sexual mode of transmission

== ENCOUNTER → 2023-10-10 | Outpatient (CLI) | payer OTHER | LOC: M PLAIMG 10:04 → M PLALAB 10:04 | PROVIDERS: ATTEND Physician Assistant | DX: Z87.442 Personal history of urinary calculi (principal) ==

== ENCOUNTER → 2023-10-26 | Outpatient (CLI) | payer OTHER | LOC: M PLAIMG 11:39 | PROVIDERS: ATTEND Nurse Practitioner Family | DX: M79.671 Pain in right foot (principal); M19.071 Primary osteoarthritis, right ankle and foot ==

== ENCOUNTER → 2023-12-11 | Outpatient (CLI) | payer OTHER ==
[~2023-12-11] MED LIST changes: +GABA-1172 PO; -GABA-282 PO
== END ==
LOC: M RAD 15:10
PROVIDERS: ATTEND Nurse Practitioner Family
DX: G43.011 Migraine without aura, intractable, with status migrainosus (principal)

== ENCOUNTER → 2024-01-15 | Outpatient (REF) | payer OTHER, MEDICAID ==
[~2024-01-15] MED LIST changes: +METF-1156 PO; -METF-817 PO
[2024-01-15 14:32] LABS: ALBUMIN 3.5 G/DL (3.2-5.2); ALKALINE PHOSPHATASE 41 U/L (35-104); ALT/SGPT 11 U/L (7.0-40); AST/SGOT < 8 U/L (<34); BILIRUBIN,TOTAL 0.3 MG/DL (0.3-1.2); BLOOD UREA NITROGEN 14 MG/DL (9-23); CALCIUM LEVEL 7.9 MG/DL (8.5-10.1); CARBON DIOXIDE LEVEL 28 MMOL/L (20-31); CHLORIDE LEVEL 108 MMOL/L (98-107); CHOLESTEROL LEVEL 198 MG/DL (<200); CREATININE FOR GFR 0.83 MG/DL (0.55-1.30); GLOMERULAR FILTRATION RATE > 60.0 (>60); GLUCOSE, FASTING 79 MG/DL (60-100); HDL CHOLESTEROL 40.4 MG/DL (>40); LDL CHOLESTEROL 122.8 MG/DL (<100); MAGNESIUM LEVEL 1.8 MG/DL (1.8-2.4); NON-HDL-C 157.6 MG/DL; POTASSIUM SERUM 4.2 MMOL/L (3.5-5.1); SODIUM LEVEL 142 MMOL/L (136-145); TOTAL PROTEIN 6.6 G/DL (5.7-8.2); TRIGLYCERIDES LEVEL 174 MG/DL (<150)
[2024-01-15 14:34] LABS: BASO # 0.1 10^3/uL (0.0-0.2); BASO % 1.1 % (0.0-1.0); EOS # 0.2 10^3/uL (0.0-0.5); EOS % 3.3 % (0.0-3.0); HEMATOCRIT 36.3 % (36.0-47.0); HEMOGLOBIN 11.2 g/dl (12.0-15.5); LYMPH # 3.4 10^3/uL (1.5-5.0); LYMPH % 46.2 % (24.0-44.0); MEAN CORPUSCULAR HEMOGLOBIN 25.2 pg (27.0-33.0); MEAN CORPUSCULAR HGB CONC 30.9 g/dl (32.0-36.5); MEAN CORPUSCULAR VOLUME 81.6 fl (80.0-96.0); MONO # 0.7 10^3/uL (0.0-0.8); MONO % 9.4 % (2.0-8.0); NEUTROPHILS # 2.9 10^3/uL (1.5-8.5); NEUTROPHILS % 39.6 % (36.0-66.0); PLATELET COUNT, AUTOMATED 390 10^3/uL (150-450); RED BLOOD COUNT 4.45 10^6/uL (4.00-5.40); THYROID STIMULATING HORMONE 3.382 uIU/ML (0.55-4.78); WHITE BLOOD COUNT 7.3 10^3/uL (4.0-10.0)
[2024-01-15 16:20] LABS: HEMOGLOBIN A1c 5.4 % (4.0-6.0)
== END ==
LOC: M LAB REF 13:22
PROVIDERS: ATTEND Nurse Practitioner Family
DX: E66.3 Overweight (principal)

== ENCOUNTER → 2024-02-06 | Outpatient (CLI) | payer OTHER | LOC: M PLAIMG 09:08 | PROVIDERS: ATTEND Nurse Practitioner Family | DX: M25.552 Pain in left hip (principal) ==

== ENCOUNTER → 2024-04-02 | Outpatient (CLI) | payer OTHER | LOC: M RAD 11:37 | PROVIDERS: ATTEND Physician Assistant | DX: I97.89 Other postprocedural complications and disorders of the circulatory system, not elsewhere classified (principal) ==

== ENCOUNTER → 2024-05-15 | Outpatient (REF) | payer OTHER, MEDICAID ==
[~2024-05-15] MED LIST changes: -AMIT24CA7 PO; +LUBI24CA32 PO
[2024-05-15 14:05] LABS: CHOLESTEROL RISK RATIO 4.02 (<5); HDL CHOLESTEROL 45.2 MG/DL (>40); LDL CHOLESTEROL 111.6 MG/DL (<100); NON-HDL-C 136.8 MG/DL
== END ==
LOC: M LAB REF 12:07
PROVIDERS: ATTEND Nurse Practitioner Family
DX: E78.5 Hyperlipidemia, unspecified (principal)

== ENCOUNTER 2024-10-27 16:13 | Emergency (ER) | payer MEDICAID, OTHER ==
[~2024-10-27] VITALS: Ht 157.5 cm; Wt 74.1 kg
[~2024-10-27 16:13] MED LIST changes: +BUPR-670 PO; -BUPR1TAB52 PO; -FLOM0.4C39 PO; +TAMS-18 PO
[2024-10-27 16:16] VITALS: TEMP 99.2
[2024-10-27 17:06] LABS: BASO # 0.1 10^3/uL (0.0-0.2); BASO % 0.8 % (0.0-1.0); EOS # 0.2 10^3/uL (0.0-0.5); EOS % 3.2 % (0.0-3.0); LYMPH # 2.1 10^3/uL (1.5-5.0); LYMPH % 28.3 % (24.0-44.0); MONO # 0.5 10^3/uL (0.0-0.8); MONO % 6.9 % (2.0-8.0); NEUTROPHILS # 4.5 10^3/uL (1.5-8.5); NEUTROPHILS % 60.5 % (36.0-66.0); PLATELET COUNT, AUTOMATED 363 10^3/uL (150-450)
[2024-10-27 17:15] LABS: URINE PREG TEST POSITIVE (NEGATIVE)
[2024-10-27 17:31] LABS: HCG, SERUM QUALITATIVE POSITIVE (NEGATIVE)
[2024-10-27 17:36] LABS: ALT/SGPT 23 U/L (7.0-40); AST/SGOT 22 U/L (<34); CALCIUM LEVEL 8.7 MG/DL (8.5-10.1); CARBON DIOXIDE LEVEL 23 MMOL/L (20-31); CHLORIDE LEVEL 106 MMOL/L (98-107); CK-MB VALUE MASS 1.0 NG/ML (<3.6); CPK CREATINE PHOSPHOKINASE 131 U/L (34-145); CREATININE FOR GFR 0.75 MG/DL (0.55-1.30); GLOMERULAR FILTRATION RATE > 90.0 (>58); MB/CK RELATIVE INDEX 0.76 (< OR =4); POTASSIUM SERUM 4.0 MMOL/L (3.5-5.1); SODIUM LEVEL 140 MMOL/L (136-145)
[2024-10-27 17:38] LABS: FREE T4 1.07 NG/DL (0.89-1.76)
[2024-10-27 17:56] LABS: HCG, SERUM QUANTITATIVE 6841.4 MIU/ML (<4.2)
[2024-10-27 18:15] VITALS: BP 129/73; O2SAT 99
[2024-10-27] MEDS ORDERED: FAMO20TA4 PO (18:59)
== END 2024-10-27 19:16 | disposition home or self-care (01) ==
LOC: M ED 16:13
DX: O99.611 Diseases of the digestive system complicating pregnancy, first trimester (principal); K20.0 Eosinophilic esophagitis; O26.891 Other specified pregnancy related conditions, first trimester; R07.9 Chest pain, unspecified; I45.10 Unspecified right bundle-branch block; F41.9 Anxiety disorder, unspecified; F32.A Depression, unspecified; K58.9 Irritable bowel syndrome, unspecified; M79.7 Fibromyalgia; Z3A.00 Weeks of gestation of pregnancy not specified; Z88.8 Allergy status to other drugs, medicaments and biological substances; Z79.1 Long term (current) use of non-steroidal anti-inflammatories (NSAID); Z79.899 Other long term (current) drug therapy

== ENCOUNTER → 2024-10-29 | Outpatient (CLI) | payer OTHER ==
[~2024-10-29] MED LIST changes: +FAMO20TA4 PO
== END ==
LOC: M PLALAB 16:10
PROVIDERS: ATTEND Obstetrics & Gynecology
DX: O20.8 Other hemorrhage in early pregnancy (principal)

== ENCOUNTER → 2024-11-04 | Day surgery (SDC) | payer OTHER ==
[~2024-11-04] MED LIST changes: +ACETAMINOPHEN 1000MG/100ML IV BAG As Ordered ONE; +KETOROLAC 30 MG/ML 1 ML VIAL As Ordered ONE; +LIDOCAINE 2% 100 MG/5 ML SDV (FOR ANES.) As Ordered ONE; +LR 1,000 ML IV SCH; +MIDAZOLAM INJ 2 MG/2 ML VIAL As Ordered ONE; +ONDANSETRON 4MG 2ML VIAL As Ordered ONE; +dexAMETHasone 4 MG/ML 1 ML VIAL As Ordered ONE
[2024-11-04] MEDS: SCOPOLAMINE 1MG TRANSDERMAL PATCH As Ordered ONE (13:50)
[2024-11-04] MEDS: DOXYCYCLINE HYCLATE 100 MG in DEXTROSE 5% (D5W) MINI-BAG PLU 100 ML IV ONE ×2 (14:00→14:30)
[2024-11-04] MEDS: SILVER NITRATE APPLICATOR (1 = QTY 10) As Ordered ONE (14:30)
[2024-11-04] MEDS: LIDOCAINE 1% MDV 20 ML VIAL As Ordered ONE (14:49)
[2024-11-04 15:30] VITALS: TEMP 97.9
[2024-11-04] MEDS: HYDROMORPHONE HCL 0.5 MG/0.5 ML SYRINGE IV PRN (15:33)
[2024-11-04] MEDS: ONDANSETRON 4MG 2ML VIAL IV PRN (15:33)
[2024-11-04 15:45] VITALS: BP 127/73; O2SAT 100
== END | disposition home or self-care (01) ==
LOC: M SDC 13:09
PROVIDERS: ATTEND Obstetrics & Gynecology
DX: O02.1 Missed abortion (principal); Z86.73 Personal history of transient ischemic attack (TIA), and cerebral infarction without residual deficits
CPT/HCPCS: 59820; 88305; J0131; J1100; J1171; J1271; J1885; J2250; J2405; J2765; J3010